=== PATIENT | female | born 1935 | race Caucasian/White ===

== ENCOUNTER → 2017-03-03 | Outpatient (CLI) | payer OTHER ==
[~2017-03-03] MED LIST: ACET-1311 PO; BUPR-79 PO; CEPH500C PO; IBUP-103 PO; INSU70IN2 SC; METF1TAB53 PO
[2017-03-03 13:02] VITALS: BP 119/75; PULSE 83; TEMP 36.5; O2SAT 93
--- NOTE | 2017-03-03 14:06 | Radiation Oncology Follow-Up ---
Radiation Oncology Follow-Up Date of Visit Mar 03, 2017. 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 Davis is a 81-year-old female was last screening mammogram was in 2009. She self detected a left breast mass in late 2015. Patient underwent diagnostic bilateral mammograms. In the left breast an irregular mass with spiculated margins was present measuring 1.8 x 1.8 x 1.8 cm located at the 10 o' clock position anteriorly. Targeted ultrasound demonstrated a solid mass at the site of the mammographic abnormality at the 10 o'clock position anteriorly. These findings were highly suggestive of malignancy and a biopsy was recommended. The right breast was unremarkable. On 09/21/2016 the patient underwent an ultrasound-guided core needle biopsy of the left breast at the 10 to 11 o'clock position 3 cm from the nipple. 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 Estrogen receptors were strongly positive. Progesterone receptors were negative. HER-2/nida" protein expression was equivocal and was confirmed negative by FISH analysis. Accession #: [id number]. Patient was seen by Dr. Sherri Winters for discussion of the surgical treatment options. Dr. Winters discussed breast conserving therapy. Clinically she palpated a near 3 cm mass at the 12 o'clock position proximal 6 cm from the nipple. No preoperative MRIs were required and patient agreed to proceed with the surgical procedure. This was performed on 10/20/2016 and consisted of a left partial mastectomy and sentinel node biopsy. 2 sentinel nodes were identified and both revealed benign fat replaced lymph node with no malignancy appreciated. A left axillary palpable node was also excised and was benign. The partial mastectomy specimen confirmed residual mucinous carcinoma Lex grade 2. The lesion measured at least 2.5 cm in size. The margins were uninvolved by invasive carcinoma with the closest margin at 1.2 cm being the deeper posterior margin. There was evidence of lymphovascular invasion. 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 The margins of the DCIS were also negative with the closest margin E1.1 centimeters of the anterior margin. The final AJCC pathologic staging was therefore pT2 pN0 (sn-), ER positive, [place] negative and HER-2/nida negative. Accession #: [id number]. The patient was subsequently seen by Dr. Balaji Ruiz for evaluation of the role of systemic therapy. It is likely that no chemotherapy will will be recommended and that the patient will be considered as a candidate for adjuvant antiestrogen therapy to start following the completion of her radiation. We were asked to see her in referral today to discuss the role of adjuvant radiation. It is for this reason the patient is being seen. She underwent a CT simulation was found to be candidate for hypo-fractionation. This was completed on 01/27/2017. She received 5130 cGy. Interim History She's been doing well over the past month. She has had some dryness of the skin and dark discoloration. This is steadily improving. She has noted no masses or tenderness and no change of the axilla. She's had no swelling of her arm. She has a follow-up appointment with Dr. Ruiz this afternoon. She is currently not scheduled for mammography. She could not remember where she had her mammograms performed. Our records were reviewed and these are performed at [facility]. Allergies Coded Allergies: No Known Allergies (Unverified , 12/01/16) Home Medications Scheduled Bupropion (Wellbutrin Sr), 150 MG PO QD Ibuprofen Tab (Advil), 200-600 MG PO Q4H Insulin Isophan/Regular (Novolin 70/30), 20 UNITS SC BID Metformin Hcl (Glucophage Ext Rel), 1 TAB PO DAILY Scheduled PRN Acetaminophen (Tylenol), 650 MG PO Q4H PRN for Pain or Fever Review of Systems Gastrointestinal: Symptoms: WNL, Diarrhea GI Comments: Chronic Diarrhea (comes and goes) Oral: Symptoms: No Problems Respiratory: Symptoms: WNL Urinary: Symptoms: WNL Skin: Symptoms: No Problems Breast: Right Upper Arm Measurement: 32.5 Right Mid Arm Measurement: 24.0 Right Wrist Measurement: 17.5 Left Upper Arm Measurement: 31.5 Left Mid Arm Measurement: 23.5 Left Wrist Measurement: 17.5 Arm Dominence: Left Additional Notes: She completed a distress management report and answered "no" to all questions. Physical Exam Vital Signs Date Time Temp Pulse Resp B/P (MAP) Pulse Ox O2 Delivery O2 Flow Rate FiO2 03/03/17 13:02 36.5 83 16 119/75 93 Fatigue: None General Appearance: no apparent distress Eyes: normal inspection, EOMI ENT: normal ENT inspection, hearing grossly normal Neck: no adenopathy, thyroid normal Respiratory/Chest: lungs clear, no respiratory distress, no accessory muscle use Breast: Breast examination reveals well-healed incisions of the left breast. There is resolving hyperpigmentation. There is resolving dry desquamation. There are no masses or tenderness and no axillary adenopathy. Using the [place] score cosmesis she currently has a poor outcome due to the desquamation. The right breast showed no masses or tenderness and no axillary adenopathy. Cardiovascular: regular rate, rhythm, no gallop, no murmur Extremities: no pedal edema Neurologic/Psychiatric: no motor/sensory deficits, alert, normal mood/affect Skin: warm/dry Laboratory Studies Test 12/31/16 09:40 White Blood Count 6.68 K/uL (4.8-10.8) Red Blood Count 4.53 M/uL (4.2-5.4) Hemoglobin 12.3 g/dL (12.0-16.0) Hematocrit 39.6 % (37-47) Mean Corpuscular Volume 87.4 fL (80-100) Mean Corpuscular Hemoglobin 27.2 pg (25-34) Mean Corpuscular Hemoglobin Concent 31.1 g/dl (32-36) Platelet Count 228 K/uL (130-400) Mean Platelet Volume 9.7 fL (7.4-10.4) Neutrophils (%) (Auto) 62.3 % Lymphocytes (%) (Auto) 28.6 % Monocytes (%) (Auto) 5.7 % Eosinophils (%) (Auto) 2.8 % Basophils (%) (Auto) 0.3 % Neutrophils # (Auto) 4.16 K/uL (1.4-6.5) Lymphocytes # (Auto) 1.91 K/uL (1.2-3.4) Monocytes # (Auto) 0.38 K/uL (0.11-0.59) Eosinophils # (Auto) 0.19 K/uL (0-0.5) Basophils # (Auto) 0.02 K/uL (0-0.2) RDW Standard Deviation 47.6 fL (36.4-46.3) RDW Coefficient of Variation 14.8 % (11.5-14.5) Immature Granulocyte % (Auto) 0.3 % Immature Granulocyte # (Auto) 0.02 K/uL (0.00-0.02) Assessment & Plan Plan: Continue regular follow-up with Dr. Winters, Dr. Ruiz, and her primary care physician. I gave her Aquaphor for the dry skin. Mammography was scheduled for the left breast in 2 months. This will be at [facility]. She'll be seeing Dr. Ruiz later this afternoon and Dr. Winters on April 21. Today we completed a cancer survivorship care plan. A copy of the document was given to the patient. We asked her to return to our office in 6 months. She may call if she has any questions or concerns in the interim. Total Time In Follow-Up I spent 20 minutes speaking to the patient a performing examination. I spent 20 minutes reviewing information, preparing the survivorship document, and completing this note. Copy To Kilo Adams M.D.; Sherri Winters MD; Balaji Ruiz MD Problem Qualifiers (1) Breast cancer: Breast location: lower inner quadrant of breast Estrogen receptor status: positive Patient sex: female Laterality: left Qualified Codes: C50.312 - Malignant neoplasm of lower-inner quadrant of left female breast; Z17.0 - Estrogen receptor positive status [ER+]
== END | disposition home or self-care (01) ==
LOC: C.ONC 12:37
PROVIDERS: ATTEND Physician Assistant Medical
DX: Z08 Encounter for follow-up examination after completed treatment for malignant neoplasm (principal); Z92.3 Personal history of irradiation; Z85.3 Personal history of malignant neoplasm of breast

== ENCOUNTER → 2017-09-14 | Outpatient (CLI) | payer OTHER ==
[~2017-09-14] MED LIST changes: -CEPH500C PO
[2017-09-14 13:19] VITALS: BP 97/60; PULSE 84; TEMP 36.4; O2SAT 95
--- NOTE | 2017-09-14 17:09 | Radiation Oncology Follow-Up ---
Radiation Oncology Follow-Up Date of Visit Sep 14, 2017. 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 Davis had her last screening mammogram was in 2009. She self detected a left breast mass in late 2015. Patient underwent diagnostic bilateral mammograms. In the left breast an irregular mass with spiculated margins was present measuring 1.8 x 1.8 x 1.8 cm located at the 10 o'clock position anteriorly. Targeted ultrasound demonstrated a solid mass at the site of the mammographic abnormality at the 10 o'clock position anteriorly. These findings were highly suggestive of malignancy and a biopsy was recommended. The right breast was unremarkable. On 09/21/2016 the patient underwent an ultrasound- guided core needle biopsy of the left breast at the 10 to 11 o'clock position 3 cm from the nipple. 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 Estrogen receptors were strongly positive. Progesterone receptors were negative. HER-2/nida" protein expression was equivocal and was confirmed negative by FISH analysis. Accession #: [id number]. Patient was seen by Dr. Sherri Winters for discussion of the surgical treatment options. Dr. Winters discussed breast conserving therapy. Clinically she palpated a near 3 cm mass at the 12 o'clock position proximal 6 cm from the nipple. No preoperative MRIs were required and patient agreed to proceed with the surgical procedure. This was performed on 10/20/2016 and consisted of a left partial mastectomy and sentinel node biopsy. 2 sentinel nodes were identified and both revealed benign fat replaced lymph node with no malignancy appreciated. A left axillary palpable node was also excised and was benign. The partial mastectomy specimen confirmed residual mucinous carcinoma [place] grade 2. The lesion measured at least 2.5 cm in size. The margins were uninvolved by invasive carcinoma with the closest margin at 1.2 cm being the deeper posterior margin. There was evidence of lymphovascular invasion. 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 The margins of the DCIS were also negative with the closest margin E1.1 centimeters of the anterior margin. The final AJCC pathologic staging was therefore pT2 pN0 (sn-), [place] positive, [place] negative and HER-2/nida negative. Accession #: [id number]. The patient was subsequently seen by Dr. Balaji Ruiz for evaluation of the role of systemic therapy. It is likely that no chemotherapy will will be recommended and that the patient will be considered as a candidate for adjuvant antiestrogen therapy to start following the completion of her radiation. We were asked to see her in referral today to discuss the role of adjuvant radiation. It is for this reason the patient is being seen. She underwent a CT simulation was found to be candidate for hypo-fractionation. This was completed on 01/27/2017. She received 5130 cGy. Interim History She's been doing well over the past 6 months. She denies any changes to her breast. She's noted no masses or tenderness and no change in the axilla. She' s had no swelling of her arm. She is up-to-date on mammography. She had a mammogram 05/03/2017. This was unilateral of the left breast. Findings are probably benign. A short interval follow-up was recommended for 6 months. Allergies Coded Allergies: No Known Allergies (Unverified , 12/01/16) Home Medications Scheduled Bupropion (Wellbutrin Sr), 150 MG PO QD Ibuprofen Tab (Advil), 200-600 MG PO Q4H Insulin Isophan/Regular (Novolin 70/30), 20 UNITS SC BID Metformin Hcl (Glucophage Ext Rel), 1 TAB PO DAILY Scheduled PRN Acetaminophen (Tylenol), 650 MG PO Q4H PRN for Pain or Fever Review of Systems Gastrointestinal: Symptoms: Vomiting, Diarrhea GI Comments: occ vomiting, frequent diarrhea does not take any medication Oral: Symptoms: No Problems Respiratory: Symptoms: WNL Urinary: Symptoms: Incontinence Comments: wears depends Skin: Symptoms: No Problems Other Skin Symptoms: pt has diabetic foot uler right foot followed by home health Breast: Right Upper Arm Measurement: 34.3 Right Mid Arm Measurement: 24.5 Right Wrist Measurement: 17.2 Left Upper Arm Measurement: 32.8 Left Mid Arm Measurement: 24.0 Left Wrist Measurement: 16.6 Arm Dominence: Left Staff Cosmetic Evalaluation: Good Physical Exam Vital Signs Date Time Temp Pulse Resp B/P (MAP) Pulse Ox O2 Delivery O2 Flow Rate FiO2 09/14/17 13:19 36.4 84 20 97/60 95 Fatigue: None General Appearance: no apparent distress, + obese Eyes: normal inspection, EOMI ENT: normal ENT inspection, hearing grossly normal Neck: no adenopathy, thyroid normal Respiratory/Chest: lungs clear, no respiratory distress, no accessory muscle use Breast: Patient has large pendulous breasts. There are well-healed incisions of the left breast. There are no masses or tenderness and no axillary adenopathy. Using the [place] score cosmesis she has a good outcome. She has no skin retractions or nipple changes. The right breast showed no masses or tenderness and no axillary adenopathy. Cardiovascular: regular rate, rhythm, no gallop, no murmur Neurologic/Psychiatric: alert, normal mood/affect Skin: warm/dry Pain Management Patient Reports Pain: Yes Side: Right Pain Location: foot Patient Preferred Pain Scale: 0 - 10 Initial Pain Intensity: 2.0 Pain Management Plan Pain is managed by her primary care physician. Laboratory Laboratory Results: not applicable Pathology Pathology Results: not applicable Imaging Imaging Studies: were reviewed Imaging Comments See interim history. Assessment & Plan Plan: The patient was unsure as to whether she had her next mammogram scheduled. This information was reviewed in the electronic medical record at [facility]. She did have a mammogram scheduled for November 01. This information was given to her. She'll continue with the regular scheduled mammography. Continue follow-up with her breast surgeon and primary care physician. She'll continue follow-up with medical oncology. We asked her to return to our office in 1 year. She may call if he she has any questions or concerns in the interim. Total Time In Follow-Up I spent 20 minutes speaking to the patient perform examination. I spent 15 minutes reviewing information and completing this note. Copy To Kilo Adams M.D.; Sherri Winters MD; Balaji Ruiz MD Problem Qualifiers (1) Breast cancer: Breast location: lower inner quadrant of breast Estrogen receptor status: positive Patient sex: female Laterality: left Qualified Codes: C50.312 - Malignant neoplasm of lower-inner quadrant of left female breast; Z17.0 - Estrogen receptor positive status [ER+]
== END | disposition home or self-care (01) ==
LOC: C.ONC 13:08
PROVIDERS: ATTEND Physician Assistant Medical
DX: Z08 Encounter for follow-up examination after completed treatment for malignant neoplasm (principal); Z92.3 Personal history of irradiation; Z85.3 Personal history of malignant neoplasm of breast

== ENCOUNTER → 2017-12-09 | Outpatient (CLI) | payer OTHER ==
[~2017-12-09] MED LIST changes: +AMOX500C3 PO; +CLC/300 PO
[2017-12-09 08:47] LABS: BASO % 0.8 %; BASO ABS # 0.05 K/uL (0-0.2); EOS % 2.4 %; EOS ABS # 0.15 K/uL (0-0.5); HEMATOCRIT 39.9 % (37-47); HEMOGLOBIN 12.5 g/dL (12.0-16.0); LYMPH ABS # 1.48 K/uL (1.2-3.4); MEAN CELL VOLUME 87.5 fL (80-100); MEAN CORPUSCULAR HEMOGLOBIN 27.4 pg (25-34); MEAN CORPUSCULAR HGB CONC 31.3 g/dl (32-36); MEAN PLATELET VOLUME 10.2 fL (7.4-10.4); MONO % 9.4 %; MONO ABS # 0.58 K/uL (0.11-0.59); NEUT % 63.4 %; NEUT ABS # 3.91 K/uL (1.4-6.5); PLATELET COUNT 238 K/uL (130-400); RED CELL DISTRIBUTION WIDTH CV 14.8 % (11.5-14.5); WHITE BLOOD COUNT 6.17 K/uL (4.8-10.8)
[2017-12-09 09:18] LABS: ALT/SGPT 16 U/L (12-78); BLOOD UREA NITROGEN 18 mg/dl (7-18); CALCIUM 8.8 mg/dl (8.5-10.1); CARBON DIOXIDE 29 mmol/L (21-32); CREATININE 1.01 mg/dl (0.60-1.20); GLUCOSE 85 mg/dl (70-99); SODIUM 140 mmol/L (136-145)
[2017-12-09 09:21] LABS: ALKALINE PHOSPHATASE 43 U/L (45-117); AST/SGOT 13 U/L (15-37); TOTAL PROTEIN 6.4 gm/dl (6.4-8.2)
[2017-12-09 09:22] LABS: HEMOGLOBIN A1C 7.4 % (4.5-5.6)
== END ==
LOC: C.LABUPNIT 07:38
PROVIDERS: ATTEND Nurse Practitioner Family
DX: E08.622 Diabetes mellitus due to underlying condition with other skin ulcer (principal)

== ENCOUNTER 2017-12-20 19:31 | Inpatient (IN) | payer OTHER ==
[~2017-12-20] VITALS: Ht 152.4 cm; Wt 82.7 kg
[~2017-12-20 19:31] MED LIST changes: -CLC/300 PO
[2017-12-20] MEDS ORDERED: ALBUT/IPRATROP 3MG/0.5MG NEB 3 ML VIAL INH STA (19:43)
--- NOTE | 2017-12-20 20:05 | DIAGNOSTIC IMAGING REPORT ---
CHEST ONE VIEW PORTABLE CLINICAL HISTORY: Weakness COMPARISON STUDY: 01/16/2015 FINDINGS: There is been interval removal of the right internal jugular central venous catheter. The heart is at the upper limits of normal in size. There is no failure. There are slightly prominent markings the left lung base, atelectatic versus inflammatory.[ IMPRESSION: AP portable study. Prominent left basilar markings, atelectatic versus inflammatory Electronically signed by: Ion Oro M.D. 12/20/2017 8:04 PM Dictated Date/Time: 12/20/2017 8:03 PM
[2017-12-20 20:24] LABS: BASO % 0.4 %; BASO ABS # 0.03 K/uL (0-0.2); EOS % 2.5 %; EOS ABS # 0.18 K/uL (0-0.5); HEMATOCRIT 41.4 % (37-47); HEMOGLOBIN 12.9 g/dL (12.0-16.0); IG# 0.03 K/uL (0.00-0.02); LYMPH % 19.1 %; LYMPH ABS # 1.39 K/uL (1.2-3.4); MEAN CELL VOLUME 86.3 fL (80-100); MEAN CORPUSCULAR HEMOGLOBIN 26.9 pg (25-34); MEAN CORPUSCULAR HGB CONC 31.2 g/dl (32-36); MEAN PLATELET VOLUME 10.1 fL (7.4-10.4); MONO % 4.9 %; MONO ABS # 0.36 K/uL (0.11-0.59); NEUT % 72.7 %; NEUT ABS # 5.29 K/uL (1.4-6.5); PLATELET COUNT 215 K/uL (130-400); RED CELL DISTRIBUTION WIDTH CV 14.8 % (11.5-14.5); RED CELL DISTRIBUTION WIDTH SD 46.7 fL (36.4-46.3); WHITE BLOOD COUNT 7.28 K/uL (4.8-10.8)
--- NOTE | 2017-12-20 20:24 | EMERGENCY ROOM VISIT NOTE ---
History Report prepared by Annia: Lul Perkins Under the Supervision of: Dr. Marvin Velazquez M.D. First contact with patient: 19:33 Stated Complaint: HYPOGLYCEMIA, HYPOXIA History of Present Illness The patient is an 82 year old female who presents to the Emergency Room with complaints of resolved hypoglycemia beginning this morning. Nursing staff states the patient's blood sugar was 38 at [facility]. They report the patient was given glucagon, and her blood sugar bhavani to 86 upon EMS arrival. Nursing staff notes she had an O2Sat of 76 on room air, and her blood sugar bhavani to the 120s in the room. They state the patient had a prehospital chest x-ray for coarse breath sounds. The patient has a history of diabetes mellitus, chronic kidney disease, osteopetrosis, and breast cancer. Pt denies LOC, headache, fevers, chills, diaphoresis, visual changes, neck pain, chest pain, breathing difficulties, nausea, vomiting, abdominal pain, back pain, urinary symptoms, numbness, weakness, lymphadenopathy, rash, or other complaints. HPI is limited secondary to mental acuity and mental status. Source of History: nursing staff History Limited By: other (mental acuity and mental status) Onset: prior to arrival Symptom Intensity: blood sugar of 36 Quality: other (hypoglycemia) Timing: resolved Review of Systems ROS limited secondary to mental acuity and mental status. Past Medical & Surgical Medical Problems: (1) Bowel obstruction (2) Breast cancer (3) Diabetes (4) Hypoglycemia Surgical Problems: (1) History of appendectomy (2) History of hysterectomy (3) Hx of cholecystectomy Family History Cancer Diabetes mellitus Heart disease Hypertension Social History Smoking Status: Never Smoker Drug Use: none Marital Status: Housing Status: lives with significant other Occupation Status: retired Current/Historical Medications Scheduled Amoxicillin (Amoxil), 500 MG PO TID Aspirin (Aspirin), 81 MG PO DAILY Bupropion (Wellbutrin Sr), 150 MG PO DAILY Calcium Carbonate-Cholecalcife (Calcium 600 with Vitamin 600-400 mg-Unit), 1 TAB PO DAILY Ibandronate Sodium (Boniva), 150 MG PO MONTHLY Insulin Isophan/Regular (Novolin 70/30), 15 UNITS SC BID Loratadine (Claritin), 10 MG PO DAILY Metformin Hcl Er (Glucophage Er), 500 MG PO BID Mupirocin (Bactroban 2% Oint), 1 APPLN TOP QS Probiotic Product (Probiotic), 250 MG PO BID Scheduled PRN Acetaminophen (Tylenol), 650 MG PO Q6H PRN for Pain or Fever Acetaminophen (Tylenol), 1 SUPP RE Q6H PRN for Pain or Fever Bisacodyl (Dulcolax), 1 SUPP NH UD PRN for Constipation Dextrose (Diabetic Use) (Insta-Glucose), 1 APPLN BU UD PRN for Hypoglycemia Protocol Glucagon (Glucagon Emergency Kit), 1 MG IM UD PRN for Hypoglycemia Protocol Magnesium Hydroxide (Milk of Magnesia 400 mg/5Ml), 1,200 MG PO UD PRN for Constipation Nystatin (Topical) (Nystatin), 1 APPLN TOP Q8 PRN for Right Breast Excoriation Ondansetron Hcl (Zofran), 4 MG PO Q6H PRN for Nausea or Vomiting Sodium Phosphate/Biphosphate (Fleet Enema), 1 EA NH UD PRN for Constipation Soft Lens Products (Saline Solution), 2 SPRAYS PETE Q6H PRN for Nasal Congestion Allergies Coded Allergies: Citalopram (Verified Allergy, Unknown, Unknown, 12/20/17) Listed on NOV Statins (Verified Allergy, Unknown, Unknown, 12/20/17) Listed on NOV Physical Exam Vital Signs Date Time Temp Pulse Resp B/P (MAP) Pulse Ox O2 Delivery O2 Flow Rate FiO2 12/20/17 23:50 91 18 93 Room Air 12/20/17 23:31 106/78 12/20/17 23:20 82 18 99 12/20/17 23:15 81 22 99 Nasal Cannula 2.0 12/20/17 23:01 125/55 12/20/17 22:45 80 19 95 12/20/17 22:39 36.7 12/20/17 22:35 106/52 12/20/17 22:31 91 24 12/20/17 22:20 192/108 12/20/17 22:19 184/129 12/20/17 21:31 82 25 116/76 98 12/20/17 21:01 81 18 140/72 96 Non-Rebreather 15.0 12/20/17 21:01 81 20 96 12/20/17 21:00 140/72 12/20/17 20:37 81 12/20/17 20:31 80 19 94 12/20/17 20:19 90 Non-Rebreather 15.0 12/20/17 20:19 91 Non-Rebreather 15.0 12/20/17 19:58 85 Room Air 12/20/17 19:58 34.5 79 22 132/57 85 Room Air 12/20/17 19:45 132/57 Physical Exam GENERAL: Awake, alert, very tired-appearing, in no distress. Arousable to voice. HENT: Normocephalic, atraumatic. Oropharynx unremarkable. EYES: Normal conjunctiva. Sclera non-icteric. NECK: Supple. No nuchal rigidity. FROM. No masses. RESPIRATORY: Rhonchi present - right greater than left. No wheezes. No rales. Mildly increased respiratory effort. CARDIAC: Normal rate. Normal rhythm. No murmurs. No rubs. Extremities warm and well perfused. Pulses equal. No JVD. GI: Soft, non-distended. No tenderness to palpation. No rebound or guarding. No masses. RECTAL: Deferred. MUSCULOSKELETAL: Atraumatic. Chest examination reveals no tenderness. The back is symmetrical on inspection without obvious abnormality. There is no CVA tenderness to palpation. No joint edema. LOWER EXTREMITIES: Calves are equal size bilaterally and non-tender. 1+ bilateral edema. No discoloration. WoundVac on the right lower extremity. NEURO: Normal sensorium. No sensory or motor deficits noted. SKIN: No rash or jaundice noted. Medical Decision & Procedures ER Provider Diagnostic Interpretation: Radiology results as stated below per my review and radiologist interpretation: CHEST ONE VIEW PORTABLE CLINICAL HISTORY: Weakness COMPARISON STUDY: 01/16/2015 FINDINGS: There is been interval removal of the right internal jugular central venous catheter. The heart is at the upper limits of normal in size. There is no failure. There are slightly prominent markings the left lung base, atelectatic versus inflammatory.[ IMPRESSION: AP portable study. Prominent left basilar markings, atelectatic versus inflammatory Electronically signed by: Ion Oro M.D. 12/20/2017 8:04 PM Dictated Date/Time: 12/20/2017 8:[address] ANGIOGRAM OF THE CHEST CLINICAL HISTORY: Hypoxia ABNORMAL CHEST X-RAY COMPARISON STUDY: Chest x-ray dated 12/20/2017 TECHNIQUE: Following the IV administration of 92 mL of Optiray-320, CT angiogram of the thorax was performed from the thoracic inlet to the lung bases utilizing the pulmonary embolus protocol. Images are reviewed in the axial, sagittal, and coronal planes. IV contrast was administered without complication. MIP imaging was performed. A dose lowering technique was utilized adhering to the principles of ALARA. CT DOSE: FINDINGS: r there is 17 mm right lobe thyroid nodule. No pathologically enlarged axillary mediastinal or hilar lymph nodes were visualized. There was no evidence of thoracic aortic dilatation. There were no pulmonary artery filling defects to indicate acute pulmonary embolism. No pleural effusions are visualized. There is moderately bilateral lower lobe atelectasis/consolidation, right more extensive than left.. There is mild esophageal wall thickening. IMPRESSION: 1. No evidence of acute pulmonary embolism 2. Bilateral lower lobe atelectasis/consolidation 3. Esophageal wall thickening 4. 17 mm right lobe thyroid nodule Electronically signed by: Ion Oro M.D. 12/20/2017 10:07 PM Dictated Date/Time: 12/20/2017 10:[address] HEAD WITHOUT CONTRAST (CT) CLINICAL HISTORY: Acute change in mental status. Hypoxia. COMPARISON STUDY: No previous studies for comparison. TECHNIQUE: Axial CT of the brain is performed from the vertex to the skull base. IV contrast was not administered for this examination. A dose lowering technique was utilized adhering to the principles of ALARA. CT DOSE: 1143.75 mGy.cm FINDINGS: No intra or extra-axial mass lesions are visualized. There is no CT evidence of acute cortical infarction. There is no evidence of midline shift. There is no acute hemorrhage. No calvarial fractures are visualized. There are minor white matter hypodensities likely on a small vessel basis. There is no evidence of pathologic ventricular dilatation. There is an old left cerebellar infarct in the distribution of the left PICA. There is right maxilla sinus fluid and mucosal thickening. There is a left maxillary sinus retention cyst. There is sphenoid sinus mucosal thickening. Multiple ethmoid air cells are opacified. There is mild mucosal disease within the right frontal sinus. IMPRESSION: 1. No acute intracranial findings 2. Old left cerebellar infarct 3. Pansinus disease Electronically signed by: Ion Oro M.D. 12/20/2017 10:03 PM Dictated Date/Time: 12/20/2017 10:01 PM Laboratory Results 12/20/17 19:15 Red Blood Count 4.80, Mean Corpuscular Volume 86.3, Mean Corpuscular Hemoglobin 26.9, Mean Corpuscular Hemoglobin Concent 31.2, Mean Platelet Volume 10.1, Neutrophils (%) (Auto) 72.7, Lymphocytes (%) (Auto) 19.1, Monocytes (%) (Auto) 4.9, Eosinophils (%) (Auto) 2.5, Basophils (%) (Auto) 0.4, Neutrophils # (Auto) 5.29, Lymphocytes # (Auto) 1.39, Monocytes # (Auto) 0.36, Eosinophils # (Auto) 0.18, Basophils # (Auto) 0.03 12/20/17 19:15 Test 12/20/17 19:15 12/20/17 20:09 12/20/17 20:13 12/20/17 22:30 White Blood Count 7.28 K/uL (4.8-10.8) Red Blood Count 4.80 M/uL (4.2-5.4) Hemoglobin 12.9 g/dL (12.0-16.0) Hematocrit 41.4 % (37-47) Mean Corpuscular Volume 86.3 fL (80-100) Mean Corpuscular Hemoglobin 26.9 pg (25-34) Mean Corpuscular Hemoglobin Concent 31.2 g/dl (32-36) Platelet Count 215 K/uL (130-400) Mean Platelet Volume 10.1 fL (7.4-10.4) Neutrophils (%) (Auto) 72.7 % Lymphocytes (%) (Auto) 19.1 % Monocytes (%) (Auto) 4.9 % Eosinophils (%) (Auto) 2.5 % Basophils (%) (Auto) 0.4 % Neutrophils # (Auto) 5.29 K/uL (1.4-6.5) Lymphocytes # (Auto) 1.39 K/uL (1.2-3.4) Monocytes # (Auto) 0.36 K/uL (0.11-0.59) Eosinophils # (Auto) 0.18 K/uL (0-0.5) Basophils # (Auto) 0.03 K/uL (0-0.2) RDW Standard Deviation 46.7 fL (36.4-46.3) RDW Coefficient of Variation 14.8 % (11.5-14.5) Immature Granulocyte % (Auto) 0.4 % Immature Granulocyte # (Auto) 0.03 K/uL (0.00-0.02) Prothrombin Time 10.3 SECONDS (9.0-12.0) Prothromb Time International Ratio 1.0 (0.9-1.1) Activated Partial Thromboplast Time 26.3 SECONDS (21.0-31.0) Partial Thromboplastin Ratio 1.0 Anion Gap 5.0 mmol/L (3-11) Est Creatinine Clear Calc Drug Dose 46.7 ml/min Estimated GFR () 58.1 Estimated GFR (Non- 50.1 BUN/Creatinine Ratio 20.3 (10-20) Calcium Level 9.3 mg/dl (8.5-10.1) Magnesium Level 1.8 mg/dl (1.8-2.4) Total Bilirubin 0.2 mg/dl (0.2-1) Direct Bilirubin < 0.1 mg/dl (0-0.2) Aspartate Amino Transf (AST/SGOT) 16 U/L (15-37) Alanine Aminotransferase (ALT/SGPT) 17 U/L (12-78) Alkaline Phosphatase 47 U/L (45-117) Total Creatine Kinase 43 U/L (26-192) Creatine Kinase MB 0.8 ng/ml (0.5-3.6) Creatine Kinase MB Ratio 1.9 (0-3.0) Troponin I < 0.015 ng/ml (0-0.045) Total Protein 6.9 gm/dl (6.4-8.2) Albumin 2.9 gm/dl (3.4-5.0) Lipase 812 U/L (73-393) Thyroid Stimulating Hormone (TSH) 1.050 uIu/ml (0.300-4.500) Bedside Lactic Acid Venous 1.86 mmol/L (0.90-1.70) Arterial Blood pH 7.45 (7.35-7.45) Arterial Blood Partial Pressure CO2 41 mmHg (35-46) Arterial Blood Partial Pressure O2 126 mm/Hg (80-95) Arterial Blood HCO3 28 mmol/L (19-24) Arterial Blood Oxygen Saturation 98.8 % (90-95) Arterial Blood Base Excess 3.6 mEq/L (-9-1.8) Arterial Blood Gas Delivery 7 LITERS Connor Test POS (POS) Urine Color YELLOW Urine Appearance CLEAR (CLEAR) Urine pH 7.0 (4.5-7.5) Urine Specific [place] 1.022 (1.000-1.030) Urine Protein NEG (NEG) Urine Glucose (UA) NEG (NEG) Urine Ketones NEG (NEG) Urine Occult Blood NEG (NEG) Urine Nitrite NEG (NEG) Urine Bilirubin NEG (NEG) Urine Urobilinogen NEG (NEG) Urine Leukocyte Esterase NEG (NEG) Laboratory results reviewed by me Medications Administered Medications (Trade) Dose Ordered Sig/Janice Route Start Time Stop Time Status Last Admin Dose Admin Albuterol/ Ipratropium (Duoneb) 3 ml NOW STAT INH 12/20/17 19:43 12/20/17 19:45 DC 12/20/17 22:48 3 ML Levofloxacin (Levaquin / D5W) 750 mg NOW STAT IV 12/20/17 22:11 12/20/17 22:13 DC 12/20/17 22:47 750 MG Piperacillin Sod/ Tazobactam Sod (Zosyn Iv) 4.5 gm NOW STAT IV 12/20/17 22:11 12/20/17 22:13 DC 12/20/17 22:11 4.5 GM ECG Per My Interpretation Indication: other (hypoxia) Rate (beats per minute): 80 Rhythm: normal sinus Findings: no acute ischemic change, no ectopy ED Course 1936: The patient was evaluated in room B10. A complete history and physical exam was performed. 1942: Ordered Duoneb 3ml INH 2103: I reevaluated the patient. She is stable. I updated her daughter. She is getting a cath urine and recheck blood sugar. 2133: I reevaluated the patient. She is more awake and going to CT. 2210: Ordered Zosyn IV 4.5gm IV, Levofloxacin 750mg IV 2236: Upon reexamination, the patient was resting comfortably. I discussed the test results and treatment plan with her. The patient will be evaluated for further management. 2242: I discussed the [facility] will evaluated the patient for further management and care. Medical Decision Prior records/ancillary studies reviewed and summarized above. Nursing notes reviewed and agree them. Additional history obtained from the patient's daughter. The patient's history was concerning for altered mental status. Differential diagnosis: Etiologies such as infection, hypoglycemia, electrolyte abnormalities, cardiac sources, intracerebral event, toxicologic, neurologic, as well as others were entertained. Physical examination: As above. The patient was tired but easily arousable to voice. She was answering basic questions and really complained of no significant symptoms. ER treatment provided: IV Lock DuoNeb BiPAP ordered however the patient's ABG revealed no significant hypercarbia and her O2 saturations are adequate. Warming blanket On reassessment the patient felt better. IV Zosyn IV Levaquin Diagnostics interpretation by me: ECG: No acute ischemia The labs revealed minimal elevation of her lactate at 1.86. CBC was unremarkable. Chemistry panel was unremarkable. Urinalysis negative. Imaging studies: Chest x-ray and CT scans as above The patient had hypoxia, hypoglycemia and hypothermia. She has infiltrates on her CT. She was treated with Rocephin and Zithromax per her treating physician at the alf. Because of this she will be covered for healthcare acquired pneumonia. Consultation: A consultation was placed with the hospitalist. The case was discussed and diagnostics were reviewed. The patient was evaluated in the ER for further treatment. Medication Reconcilliation Current Medication List: was personally reviewed by me Blood Pressure Screening Patient's blood pressure: Normal blood pressure Blood pressure disposition: Did not require urgent referral Consults Time Called: 2214 Consulting Physician: Judi Barnard Hospitalist Returned Call: [phone] I discussed the patient's case with Judi Barnard Hospitalist. He will evaluated the patient for further management and care. Impression Primary Impression: HCAP (healthcare-associated pneumonia) Scribe Attestation The scribe's documentation has been prepared under my direction and personally reviewed by me in its entirety. I confirm that the note above accurately reflects all work, treatment, procedures, and medical decision making performed by me. Departure Information Dispostion Being Evaluated By Hospitalist Referrals John Torres (PCP)
[2017-12-20 20:37] LABS: ALBUMIN 2.9 gm/dl (3.4-5.0); ALT/SGPT 17 U/L (12-78); AST/SGOT 16 U/L (15-37); BLOOD UREA NITROGEN 21 mg/dl (7-18); CALCIUM 9.3 mg/dl (8.5-10.1); CARBON DIOXIDE 29 mmol/L (21-32); CREATININE 1.05 mg/dl (0.60-1.20); GLUCOSE 94 mg/dl (70-99); POTASSIUM 3.6 mmol/L (3.5-5.1); SODIUM 139 mmol/L (136-145)
[2017-12-20 20:38] LABS: PTT PATIENT 26.3 SECONDS (21.0-31.0)
[2017-12-20 20:50] LABS: ALKALINE PHOSPHATASE 47 U/L (45-117); CKMB 0.8 ng/ml (0.5-3.6); LIPASE 812 U/L (73-393); TOTAL PROTEIN 6.9 gm/dl (6.4-8.2)
[2017-12-20] MEDS ORDERED: ASPI1TAB83 PO (21:01)
[2017-12-20] MEDS ORDERED: CALC-585 PO (21:06)
[2017-12-20] MEDS ORDERED: CLR10 PO (21:06)
[2017-12-20] MEDS ORDERED: IBAN150T PO (21:06)
[2017-12-20] MEDS ORDERED: BUPR-79 PO (21:08)
[2017-12-20] MEDS ORDERED: METF500T5 PO (21:08)
[2017-12-20] MEDS ORDERED: INSU70IN2 SC (21:10)
[2017-12-20] MEDS ORDERED: AMOX500T3 PO (21:12)
[2017-12-20] MEDS ORDERED: MISCCAP80 PO (21:12)
[2017-12-20] MEDS ORDERED: OPTIRAY 320 IV PRN (21:15)
[2017-12-20] MEDS ORDERED: ACET-1311 PO (21:19)
[2017-12-20] MEDS ORDERED: ACET650S10 RE (21:19)
[2017-12-20] MEDS ORDERED: SODIENE PR (21:25)
[2017-12-20] MEDS ORDERED: GLGKIT IM (21:25)
[2017-12-20] MEDS ORDERED: BISA10SU3 PR (21:25)
[2017-12-20] MEDS ORDERED: DEXT40GE BU (21:27)
[2017-12-20] MEDS ORDERED: MAGNSUS73 PO (21:30)
[2017-12-20] MEDS ORDERED: SOFT1SOL45 NAE (21:35)
[2017-12-20] MEDS ORDERED: ONDA4TAB46 PO (21:35)
[2017-12-20] MEDS ORDERED: BCTROWC TOP (21:36)
[2017-12-20] MEDS ORDERED: NYST100033 TOP (21:38)
--- NOTE | 2017-12-20 22:04 | DIAGNOSTIC IMAGING REPORT ---
CT HEAD WITHOUT CONTRAST (CT) CLINICAL HISTORY: Acute change in mental status. Hypoxia. COMPARISON STUDY: No previous studies for comparison. TECHNIQUE: Axial CT of the brain is performed from the vertex to the skull base. IV contrast was not administered for this examination. A dose lowering technique was utilized adhering to the principles of ALARA. CT DOSE: 1143.75 mGy.cm FINDINGS: No intra or extra-axial mass lesions are visualized. There is no CT evidence of acute cortical infarction. There is no evidence of midline shift. There is no acute hemorrhage. No calvarial fractures are visualized. There are minor white matter hypodensities likely on a small vessel basis. There is no evidence of pathologic ventricular dilatation. There is an old left cerebellar infarct in the distribution of the left PICA. There is right maxilla sinus fluid and mucosal thickening. There is a left maxillary sinus retention cyst. There is sphenoid sinus mucosal thickening. Multiple ethmoid air cells are opacified. There is mild mucosal disease within the right frontal sinus. IMPRESSION: 1. No acute intracranial findings 2. Old left cerebellar infarct 3. Pansinus disease Electronically signed by: Ion Oro M.D. 12/20/2017 10:03 PM Dictated Date/Time: 12/20/2017 10:01 PM
--- NOTE | 2017-12-20 22:08 | DIAGNOSTIC IMAGING REPORT ---
CT ANGIOGRAM OF THE CHEST CLINICAL HISTORY: Hypoxia ABNORMAL CHEST X-RAY COMPARISON STUDY: Chest x-ray dated 12/20/2017 TECHNIQUE: Following the IV administration of 92 mL of Optiray-320, CT angiogram of the thorax was performed from the thoracic inlet to the lung bases utilizing the pulmonary embolus protocol. Images are reviewed in the axial, sagittal, and coronal planes. IV contrast was administered without complication. MIP imaging was performed. A dose lowering technique was utilized adhering to the principles of ALARA. CT DOSE: FINDINGS: r there is 17 mm right lobe thyroid nodule. No pathologically enlarged axillary mediastinal or hilar lymph nodes were visualized. There was no evidence of thoracic aortic dilatation. There were no pulmonary artery filling defects to indicate acute pulmonary embolism. No pleural effusions are visualized. There is moderately bilateral lower lobe atelectasis/consolidation, right more extensive than left.. There is mild esophageal wall thickening. IMPRESSION: 1. No evidence of acute pulmonary embolism 2. Bilateral lower lobe atelectasis/consolidation 3. Esophageal wall thickening 4. 17 mm right lobe thyroid nodule Electronically signed by: Ion Oro M.D. 12/20/2017 10:07 PM Dictated Date/Time: 12/20/2017 10:03 PM
[2017-12-20] MEDS ORDERED: LEVAQUIN 750MG / 150ML D5W IV STA (22:11)
[2017-12-20] MEDS ORDERED: PIPERACILLIN/TAZOBACTAM 4.5 GM/100ML D5W IV STA (22:11)
[2017-12-20] MEDS ORDERED: SODIUM CHLORIDE 0.9% 1000ML 1,000 ML IV SCH (23:49)
[2017-12-21] VITALS (7 sets, daily range): BP systolic 92–138; BP diastolic 58–78; PULSE 80–92; TEMP 36.4–37.5; O2SAT 92–96; Ht 152.4 cm; Wt 82.7 kg
[2017-12-21] MEDS ORDERED: ONDANSETRON INJ 2 MG/ML 2 ML VIAL IV PRN
[2017-12-21] MEDS ORDERED: BISACODYL 10 MG SUPP PR PRN
[2017-12-21] MEDS ORDERED: PIPERACILL/TAZOBAC CONSULT ACTIVE PRN
[2017-12-21] MEDS ORDERED: NYSTATIN POWDER 15GM BTL EXT PRN
[2017-12-21] MEDS ORDERED: NITROGLYCERIN 0.4 MG SL PER TAB CHARGE SL PRN
[2017-12-21] MEDS ORDERED: ALUMINUM/MAGNESIUM/SIMETH (MAALOX MAX) 30 ML UDC PO PRN
[2017-12-21] MEDS ORDERED: ACETAMINOPHEN 325 MG TAB PO PRN
[2017-12-21] MEDS ORDERED: POLYETHYLENE (MIRALAX) 17 GM PACK PO PRN
[2017-12-21] MEDS ORDERED: GLUCOSE 40% GEL 15 GM TUBE PO PRN (00:45)
[2017-12-21] MEDS ORDERED: DEXTROSE 50% 50 ML SYR IV PRN (00:45)
[2017-12-21] MEDS ORDERED: GLUCOSE 10 TABS/TUBE PO PRN (00:45)
[2017-12-21] MEDS ORDERED: GLUCAGON FOR INJ 1 MG VIAL SQ PRN (00:45)
[2017-12-21] MEDS: D5W AND NSS 1,000 ML IV SCH ×2 (01:15→13:40)
[2017-12-21] MEDS ORDERED: LEVOFLOXACIN CONSULT ACTIVE PRN (01:30)
[2017-12-21 03:28] LABS: BASO % 0.2 %; BASO ABS # 0.02 K/uL (0-0.2); EOS ABS # 0.09 K/uL (0-0.5); HEMATOCRIT 36.9 % (37-47); HEMOGLOBIN 11.7 g/dL (12.0-16.0); IG# 0.02 K/uL (0.00-0.02); LYMPH ABS # 1.14 K/uL (1.2-3.4); MEAN CORPUSCULAR HEMOGLOBIN 27.3 pg (25-34); MEAN CORPUSCULAR HGB CONC 31.7 g/dl (32-36); MEAN PLATELET VOLUME 9.5 fL (7.4-10.4); MONO % 7.6 %; MONO ABS # 0.66 K/uL (0.11-0.59); NEUT ABS # 6.81 K/uL (1.4-6.5); PLATELET COUNT 188 K/uL (130-400); RED CELL DISTRIBUTION WIDTH CV 14.9 % (11.5-14.5); RED CELL DISTRIBUTION WIDTH SD 46.9 fL (36.4-46.3); WHITE BLOOD COUNT 8.74 K/uL (4.8-10.8)
[2017-12-21] MEDS: PIPERACILL/TAZOBAC IV 3.375 GM in DEXTROSE 5% 100ML 100 ML IV SCH ×3 (03:53→21:31)
[2017-12-21 03:58] LABS: CALCIUM 8.8 mg/dl (8.5-10.1); CREATININE 1.03 mg/dl (0.60-1.20); POTASSIUM 4.4 mmol/L (3.5-5.1)
--- NOTE | 2017-12-21 03:59 | HISTORY & PHYSICAL EXAMINATION ---
DATE OF ADMISSION: 12/21/2017 CHIEF COMPLAINT: Hyperglycemia and shortness of breath. HISTORY OF PRESENT ILLNESS: This 82-year-old female with past medical history significant for diabetes, chronic kidney disease stage III, diabetic foot ulcer chronic, urinary incontinence, anxiety, depression comes from [facility] because of episode of hypoglycemia and also somewhat hypoxic. Daughter is in the room . The patient says she is in [facility], since last 1 week because the patient's is there for 1 month and her is the one who is taking care of the patient, so she went to live there for the last 1 week. The patient also follows with wound clinic for chronic right foot wound ulcer. Currently, she has a wound VAC and she is on antibiotics for that, but at the [facility] she also developed some cough and she was also treated with Z-Bill and then she had couple of episodes of hypoglycemia and today her blood sugars 38, was given glucagon which raised the blood sugar and the EMS came and when the EMS checked, her oxygen sats 76% on room air and they brought here and chest shows some coarse breath sounds initially and she was given fluids and antibiotics. Currently, she is resting comfortably, hemodynamically stable. Had some headache earlier, but says headache is better now. Denies any blurred vision, no earache. Has some runny nose, has some dry cough, some sore throat, no difficulty swallowing. Denies any chest pain. Denies any shortness of breath. Currently, no abdominal pain, no nausea, no vomiting. Normal bowel and bladder movements. Appetite is okay. No blood in the stools. No blood in the urine. Usually, walks okay except she could not bear any weight on the right leg. ALLERGIES: CITALOPRAM AND STATIN. PAST MEDICAL HISTORY: As mentioned above. PAST SURGICAL HISTORY: Axillary lymph node biopsy, incision and drainage of the left knee, exploration of the abdomen, throat polyp removed, laser surgery of the eyes, partial mastectomy, appendectomy, enterectomy small bowel resection, cataract surgeries, repair of the incisional hernia, total abdominal hysterectomy with removal of tubes, cholecystectomy. MEDICATIONS: Aspirin 81 mg p.o. daily; Wellbutrin-XL 150 mg p.o. daily; calcium carbonate 1 tablet daily; Boniva 150 mg 1 tablet every month; insulin Novolin 70/30, 20 units b.i.d.; metformin 850 mg p.o. b.i.d.; metformin 500 mg long acting b.i.d.; metformin 1000 mg p.o. long acting daily; MetroGel topical skin. FAMILY HISTORY: Significant for mother had cancer. Father had heart disorder and cerebellar aneurysm. Maternal grandmother and paternal grandmother had diabetes. SOCIAL HISTORY: . No smoking history. No alcohol history. No drug history. REVIEW OF SYMPTOMS: As per HPI. Rest of review of symptoms negative. PHYSICAL EXAMINATION: GENERAL: The patient is old and frail, not in distress. VITAL SIGNS: Temperature 36.7, pulse 81, respiratory rate 22, blood pressure 125/55, oxygen at 99% on 2 liters. HEENT: No pallor, no icterus. Pupils equal, round and reactive to light. NECK: No JVD, no neck masses, no carotid bruit. CARDIOVASCULAR: S1, S2, regular rate and rhythm, no murmur, no gallop. RESPIRATORY SYSTEM: Normal AP diameter. Clear to auscultation bilaterally. No accessory muscle use. No wheezing, no crackles. ABDOMEN: Soft, bowel sounds present. Nontender. No distention. CENTRAL NERVOUS SYSTEM: Cranial nerves grossly nonfocal. EXTREMITIES: Mild tremor present. No erythema seen. LABORATORIES: WBC 7.2, hemoglobin 12.9, hematocrit 41.4, platelets 215. Sodium 139, potassium 3.6, chloride 105, bicarbonate 113, BUN 21, creatinine 1.05, glucose 126, random glucose 94. Point of care lactic acid 1.8, calcium 9.3, magnesium 1.8, total bilirubin 0.2, direct bilirubin less than 0.1, AST 16, ALT 17, alkaline phosphatase 47, total creatinine kinase 43, CK-MB 0.8 and troponin I less than 0.015. Lipase 812. TSH is 1.05. PT 10.3, INR 1, aPTT 26.3. Urinalysis negative. CT of the head, no acute findings seen, old left cerebellar infarct, felder sinus disease. CT of the chest: No PE, bilateral lower lobe atelectasis and consolidation seen,oesophageal wall thickness and 30 mm right lower thyroid nodule. Chest x-ray: Prominent left base atelectasis versus inflammatory. EKG: Normal sinus rhythm at the rate of 80, no significant change from previous EKG. ASSESSMENT AND PLAN: This is an 82-year-old female presents with episode of hypoglycemia and hypoxia. 1. Hypoxia. CAT scan shows bibasilar consolidation, most likely with pneumonia, was having cough for some time. We will check for flu. We will empirically start her on Levaquin and Zosyn. Follow the cultures. Nebs p.r.n., oxygen supplementation for now and monitor in tele floor. The patient is currently saturating okay on 2 liters.POC lactic acid 1.6 mostly from hypoxia. repeat labs normalized 2. Hypoglycemia having few episodes she says since she went to [facility]. As per daughter, the patient is on metformin and insulin but does not take much insulin at home .She was getting sliding scale at [facility] but sugars were low. We will hold the metformin. We will follow the blood sugars. Start on D5 normal saline. We will follow the blood sugars. We will give her sliding scale with goal range of 120-180, closely monitor. We will follow HbA1c levels.Consult pharmacy for glycemic management 3. Depression. Continue Wellbutrin. 4. History of breast cancer status post partial mastectomy and radiation treatment. 5. History of chronic diabetic ulcer on the right foot. Follow with the wound care. Currently on the wound VAC. Was getting antibiotics, but currently we will hold home antibiotics, as placed on IV antibiotics. We will consult wound care. 6. Thyroid nodule. on ct chest 17mm thyroid nodule. Out patient followup. 7 Deep venous prophylaxis, SCDs and TEDs. 8. Disposition. Admit to tele floor. Expect to discharge back to [facility] when patient is stable. Of note, the [facility] physician called ER and said they can do IV abx in the [facility]. Social service for d/c planning Code status level 1. MTDD
[2017-12-21] MEDS: HEPARIN SOD 5000 UNIT/0.5 ML CARP SQ SCH ×3 (05:35→21:31)
[2017-12-21] MEDS: INSULIN ASPART 100 UNITS/ML 3 ML PEN SC SCH ×3 (07:00→16:15)
[2017-12-21] MEDS: BACITRACIN OINT 15 GM TUBE TOP SCH ×4 (08:00→23:29)
[2017-12-21] MEDS: ASPIRIN 81 MG ECTAB PO SCH (08:54)
[2017-12-21] MEDS: CALCIUM 600MG + VIT D 400 IU TAB PO SCH (08:54)
[2017-12-21] MEDS: BuPROPion SR 150 MG TABCR PO SCH (08:54)
[2017-12-21 17:29] LABS: INFLUENZA A PCR Neg for Influ A (NEG); INFLUENZA B PCR Neg for Influ B (NEG)
--- NOTE | 2017-12-21 17:32 | Progress Note ---
Progress Note Date of Service Dec 21, 2017. Progress Note Patient admitted today see the H&P for detailed information Briefly this is a 10-year-old female with chronic right plantar foot diabetic infection on wound VAC, type 2 diabetes on insulin and oral hypoglycemics metformin, CKD stage III, hypertension At present at [facility] for skilled rehab-sent from snf to ER, as patient was found to be hypoxic, increased confusion, low blood sugar In ER CT chest shows bibasilar infiltrate versus atelectasis Blood sugar was in the low 50s Elevated lactic acid Patient empirically started with IV Zosyn and Levaquin for healthcare associated pneumonia IV fluids with dextrose for hypoglycemic episode Wound care team consulted for chronic right foot diabetic infection and wound VAC management On exam at bedside, Patient appears to be at her baseline mental status able to answer questions appropriately, does not recall the events that led her to admission in hospital Healthcare associated pneumonia/hypoxia Symptom has improved no fever chills , patient denies of any cough shortness of breath Hypoxia has resolved Continue with IV Zosyn, DC levofloxacin for now for increased risk associated with associated Will transition to oral antibiotics in the next 24-48 hours depending patient's clinical improvement Hypoglycemia/history of type 2 diabetes Per daughter in snf patient has repeated low blood sugar event, was not happy that patient was still receiving large dose of insulin by the nursing staff Metformin We will DC insulin sliding care Hemoglobin A1c 7 Pharmacy consulted for glycemic management Discussed at length with daughter-patient may need minimum or no insulin requirement on return to nursing will prove to prevent hypoglycemia History of breast cancer: Status post partial mastectomy and radiation treatment No active issue. . Thyroid nodule. on ct chest 17mm thyroid nodule. will order thyroid ultrasound TSH level within normal limits CODE STATUS: Full code Disposition: Spoke with daughter Maryana Walden wants to speak with case assistant for discharge planning Wants to look into other institution for continued rehab for the patient, as she thinks patient was not getting adequate care at the current snf sem manager consulted PT OT evaluation requested
[2017-12-22] MEDS: PIPERACILL/TAZOBAC IV 3.375 GM in DEXTROSE 5% 100ML 100 ML IV SCH ×2 (04:36→11:25)
[2017-12-22] MEDS: HEPARIN SOD 5000 UNIT/0.5 ML CARP SQ SCH ×3 (04:36→21:42)
[2017-12-22 07:14] VITALS: BP 106/77; PULSE 77; TEMP 36.1; O2SAT 97
[2017-12-22] MEDS: BACITRACIN OINT 15 GM TUBE TOP SCH ×3 (07:59→23:14)
[2017-12-22 08:00] VITALS: O2SAT 97
[2017-12-22] MEDS: ASPIRIN 81 MG ECTAB PO SCH (08:03)
[2017-12-22] MEDS: BuPROPion SR 150 MG TABCR PO SCH (08:04)
[2017-12-22] MEDS: CALCIUM 600MG + VIT D 400 IU TAB PO SCH (08:04)
[2017-12-22 09:15] LABS: CALCIUM 9.2 mg/dl (8.5-10.1); CREATININE 0.99 mg/dl (0.60-1.20); POTASSIUM 4.2 mmol/L (3.5-5.1)
[2017-12-22 15:16] VITALS: BP 130/75; PULSE 85; TEMP 36.4; O2SAT 96
[2017-12-22 16:00] VITALS: O2SAT 97
--- NOTE | 2017-12-22 17:16 | Progress Note ---
Internal Med Progress Note Date of Service: Dec 22, 2017. Provider Documentation: SUBJECTIVE: Patient denies of any cough no discomfort no fever or chills Eager to be discharged back to [facility] OBJECTIVE: Vital Signs-as noted below Exam: General-elderly female, no apparent distress Eyes- sclera nonicteric, pupils react to light ENT-moist oral mucosa Neck-no JVD, no carotid bruit Lungs- diminished, occasional rales at bases Heart-regular S1-S2 Abdomen-soft nontender Extremities-has a wound VAC on the right foot Neuro-forgetfulness/baseline dementia?, No focal neurological deficit Lab data as noted below. ASSESSMENT & PLAN: HEALTHCARE ASSOCIATED PNEUMONIA/HYPOXIA Symptom has improved significantly , patient denies of any cough shortness of breath Hypoxia has resolved will DC IV antibiotics Transition to oral antibiotic doxycycline 100 mg twice daily for 5 more days HYPOGLYCEMIA/HISTORY OF TYPE 2 DIABETES Possible secondary to infection? Insulin and oral hypoglycemic discontinued Blood sugar stable, no episode of hypoglycemia Hemoglobin A1c 7 Pharmacy consulted for glycemic management Discussed at length with daughter-patient may need minimum or no insulin requirement on return to nursing will prove to prevent hypoglycemia HISTORY OF BREAST CANCER: Status post partial mastectomy and radiation treatment No active issue. THYROID NODULE. on ct chest 17mm thyroid nodule. l ordered thyroid ultrasound TSH level within normal limits CODE STATUS: Full code DISPOSITION: PT OT evaluation requested Appreciate input from spring encaser Plan to discharge patient to [facility] tomorrow to complete rehab Vital Signs: Date Time Temp Pulse Resp B/P (MAP) Pulse Ox O2 Delivery O2 Flow Rate FiO2 12/23/17 07:37 36.9 71 20 146/74 (98) 90 12/22/17 23:59 Room Air 12/22/17 23:30 36.2 82 18 140/84 (102) 90 Room Air 12/22/17 16:00 97 Nasal Cannula 2.0 12/22/17 15:16 36.4 85 22 130/75 (93) 96 Room Air Lab Results: Results Past 24 Hours Test 12/22/17 08:24 12/22/17 11:17 12/22/17 17:03 12/22/17 21:39 Range/Units Sodium Level 142 136-145 mmol/L Potassium Level 4.2 3.5-5.1 mmol/L Chloride Level 108 98-107 mmol/L Carbon Dioxide Level 28 21-32 mmol/L Anion Gap 6.0 3-11 mmol/L Blood Urea Nitrogen 15 7-18 mg/dl Creatinine 0.99 0.60-1.20 mg/dl Est Creatinine Clear Calc Drug Dose 43.2 ml/min Estimated GFR () 62.4 Estimated GFR (Non- 53.8 BUN/Creatinine Ratio 15.5 10-20 Random Glucose 102 70-99 mg/dl Calcium Level 9.2 8.5-10.1 mg/dl Magnesium Level 1.7 1.8-2.4 mg/dl Bedside Glucose 127 97 132 70-90 mg/dl Test 12/23/17 07:51 Range/Units Bedside Glucose 90 70-90 mg/dl
[2017-12-22] MEDS ORDERED: DXY100 PO (17:26)
--- NOTE | 2017-12-22 17:29 | Discharge Instructions ---
Discharge Instructions Date of Service Dec 22, 2017. Admission Reason for Admission: Hypoglycemia, Pna Discharge Discharge Diagnosis / Problem: PNEUMONIA /CHRONIC RT DIABETIC FOOT INFECTION Discharge Goals Goal(s): Increase independence, Improve disease control, Diagnostic testing, Therapeutic intervention Activity Recommendations Activity Level: Assistance Required Therapies: Physical Therapy, Occupational Therapy . Additional Information Patient informed of condition: Yes Advance Directives: No DNR: No Level of Care: Skilled Communicable Disease: No Prognosis: Stable Tavarez Catheter: No Instructions / Follow-Up Instructions / Follow-Up WOUND CLINIC FOLLOWUP ON 12/26/17 @ 9:30 AM FOLLOW UP WITH [facility]YSICIAN IN [facility] FOR BLOOD SUGAR MANAGEMENT INSULIN IS DISCONTINUED DIABETIC MEDS RECOMMENDATIONS: * Continue metformin ER 500 mg PO BID * monitor renal function every 3 months - discontinue metformin for CrCl < 30 ml/min * Consider resuming insulin therapy as an outpatient if patient has a fasting BSG greater than 130 mg/dL x 2. * Recommend D/C Novolin 70/30 * START WITH Once long acting basal insulin (lantus or levemir) to limit hypoglycemia. * Start with 8 units SQ once daily. * blood sugar monitoring :-fasting / before each meals /before bedtime * keep log of the blood sugars * notify physician for high > 200 /low < 100 blood sugars Current Hospital Diet Patient's current hospital diet: AHA Diet (Heart Healthy), Diabetes Type 2 Diet Discharge Diet Recommended Diet: AHA Diet (Heart Healthy), Diabetes Type 2 Diet Pending Studies Studies pending at discharge: no Laboratory Results Hemoglobin A1c Test 12/21/17 03:18 Range/Units Estimated Average Glucose 154 mg/dl Hemoglobin A1c 7.0 H 4.5-5.6 % Medical Emergencies . Who to Call and When: Medical Emergencies: If at any time you feel your situation is an emergency, please call 911 immediately. . Non-Emergent Contact Non-Emergency issues call your: Primary Care Provider . . "Provider Documentation" section prepared by Lyudmila Anderson. . Core Measure Problem Core Measures: None
[2017-12-22] MEDS ORDERED: MAGNESIUM SULFATE 1GM / D5W 100 ML IV ONE (17:45)
[2017-12-22] MEDS ORDERED: PHARMACY GLYCEMIC MGMT CONSULT PRN (17:48)
[2017-12-22] MEDS: DOXYCYCLINE HYCLATE 100 MG CAP PO SCH (21:42)
[2017-12-22] MEDS ORDERED: LEVOFLOXACIN / D5W 750 MG in PREMIXED IN D5W 150 ML IV SCH (22:00)
[2017-12-22 23:30] VITALS: BP 140/84; PULSE 82; TEMP 36.2; O2SAT 90
[2017-12-23 07:37] VITALS: BP 146/74; PULSE 71; TEMP 36.9; O2SAT 90
[2017-12-23] MEDS: CALCIUM 600MG + VIT D 400 IU TAB PO SCH (08:09)
[2017-12-23] MEDS: BuPROPion SR 150 MG TABCR PO SCH (08:09)
[2017-12-23] MEDS: DOXYCYCLINE HYCLATE 100 MG CAP PO SCH (08:09)
[2017-12-23] MEDS: ASPIRIN 81 MG ECTAB PO SCH (08:09)
[2017-12-23] MEDS: BACITRACIN OINT 15 GM TUBE TOP SCH ×2 (08:13→16:05)
--- NOTE | 2017-12-23 09:14 | Pharmacy Progress Note ---
Glycemic Control Intl Consult Date of Service Dec 23, 2017. Scope Glycemic Pharmacist consulted by Dr Anderson on 12/22/17 for glycemic control and to write orders per [facility] inpatient glycemic control protocol Objective Weight (Kilograms): 82.700 Accuchecks BSG (last 24hrs): Test 12/22/17 11:17 12/22/17 17:03 12/22/17 21:39 12/23/17 07:51 Bedside Glucose 127 mg/dl (70-90) 97 mg/dl (70-90) 132 mg/dl (70-90) 90 mg/dl (70-90) HbA1c Test 12/21/17 03:18 Hemoglobin A1c 7.0 % (4.5-5.6) H Recent Pertinent Medications Outpatient Anti-diabetic Regimen: * Metformin ER 500 mg PO BID + Novolin 70/30 15 units SQ BID The patient is currently receiving: * no insulin or oral anti-diabetic agents Assessment & Plan ASSESSMENT: * 82 yr old T2DM female admitted with hypoglycemia and pneumonia. * Pt is well controlled on Novolin 70/30 and metformin as an outpatient with A1c of 7%. However, she does report some episodes of hypoglycemia. * Fany has required no insulin since the time of admission. PLAN FOR INPATIENT GLYCEMIC CONTROL: * Resume metformin ER 500 mg BID * Basal insulin : none * Bolus Insulin: none DISCHARGE RECOMMENDATIONS: * Continue metformin ER 500 mg PO BID * monitor renal function every 3 months - discontinue metformin for CrCl < 30 ml/min * Consider resuming insulin therapy as an outpatient if patient has a fasting BSG greater than 130 mg/dL x 2. Recommend changing Novolin 70/30 to a once daily dose of long acting basal insulin (lantus or levemir) to limit hypoglycemia. Start with 8 units SQ once daily. Thank you.
--- NOTE | 2017-12-23 10:39 | Clinical Documentation Query ---
CLINICAL DOCUMENTATION QUERY 82 year old female who presents to the Emergency Room with complaints hypoglycemia and hypoxia. She was found 76% on RA and still 85% on 15L NRM. In your clinical opinion is this patient being managed for: ( ) Acute respiratory failure with hypoxia treated with O2, Nebs, and IV antibiotics. ( ) Not Agree ( ) Other explanation of clinical findings (Please Explain) ( ) Unable to determine (Please Define) ( ) Need to Discuss The medical record reflects the following clinical findings, treatment, and risk factors. Clinical Indicators: As above. tachypnea 25. Treatment: O2 via NRM, nebs, IV antibiotics Risk Factors: Age, HCAP, Please clarify and document your clinical opinion in the progress notes and discharge summary. Terms such as "probable", "suspected", "likely", "questionable", "possible", or "still to be ruled out" are acceptable. IF IN AGREEMENT, YOU MUST DOCUMENT ABOVE DIAGNOSTIC STATEMENT IN DAILY PROGRESS NOTES AND DISCHARGE SUMMARY. This document is not part of the patient's record. Thank You, Pascual Dow, RN [phone]
--- NOTE | 2017-12-23 11:52 | Discharge Summary ---
Discharge Summary Date of Service Dec 23, 2017. Discharge Summary Admission Date: Dec 20, 2017 at 23:55 Discharge Date: Dec 23, 2017 Discharge Disposition: senior care facility ([facility] ) Principal Diagnosis: PNEUMONIA /CHRONIC RT DIABETIC FOOT INFECTION Medication Reconciliation New Medications: Doxycycline Hyclate (Doxycycline Hyclate) 100 Mg Cap 1 CAP PO BID for 5 Days, #10 CAP Continued Medications: Acetaminophen (Tylenol) 325 Mg Tab 650 MG PO Q6H PRN for Pain or Fever, TAB NEEDED FOR PAIN AND/OR ELEVATED TEMPERATURE GREATER THAN 101 F. DO NOT EXCEED 3 GM APAP/24 HOURS Acetaminophen (Tylenol) 650 Mg Supp 1 SUPP RE Q6H PRN for Pain or Fever NEEDED FOR PAIN AND/OR ELEVATED TEMPERATURE GREATER THAN 101 F. DO NOT EXCEED 3 GM APAP/24 HOURS Amoxicillin (Amoxil) 500 Mg Tab 500 MG PO TID for 10 Days, #30 TAB PRESCRIBED 12/16/2017, TAKE DIRECTED UNTIL GONE Aspirin (Aspirin) 81 Mg Tab 81 MG PO DAILY, TAB Bisacodyl (Dulcolax) 10 Mg Sup 1 SUPP OH UD PRN for Constipation, SUP NEEDED FOR NO BOWEL MOVEMENT ON DAY 4 Bupropion (Wellbutrin Sr) 150 Mg Ertab 150 MG PO DAILY, TAB Calcium Carbonate-Cholecalcife (Calcium 600 with Vitamin 600-400 mg-Unit) 1 Tab Tab 1 TAB PO DAILY Dextrose (Diabetic Use) (Insta-Glucose) 77.4 % Gel 1 APPLN BU UD PRN for Hypoglycemia Protocol NEEDED FOR BSG LESS THAN 60 AND/OR SYMPTOMATIC HYPOGLYCEMIA (MUST BE RESPONSIVE AND ABLE TO SWALLOW SAFELY). Glucagon (Glucagon Emergency Kit) 1 Mg Kit 1 MG IM UD PRN for Hypoglycemia Protocol NEEDED FOR BSG LESS THAN 60 AND/OR SYMPTOMATIC/UNRESPONSIVE HYPOGLYCEMIA. MAY REPEAT AFTER 15 MINUTES IF NEEDED. Ibandronate Sodium (Boniva) 150 Mg Tab 150 MG PO MONTHLY, TAB TAKE THIS MEDICATION ONCE EVERY MONTH WITH 8 OUNCES OF WATER 60 MINUTES BEFORE FIRST MEAL OF THE DAY AND REMAIN UPRIGHT FOR 60 MINUTES AFTER TAKING. Loratadine (Claritin) 10 Mg Tab 10 MG PO DAILY for 7 Days, #7 TAB START 12/16/2017, TAKE ONCE A DAY FOR INCREASED SECRETIONS FOR ONE WEEK Magnesium Hydroxide (Milk of Magnesia 400 mg/5Ml) 1 Aubrie Aubrie 1200 MG PO UD PRN for Constipation NEEDED FOR NO BOWEL MOVMENT FOR 72 HOURS Metformin Hcl Er (Glucophage Er) 500 Mg Tab 500 MG PO BID, TAB Mupirocin (Bactroban 2% Oint) 66 Appln/22 Gm Oint 1 APPLN TOP QS, TUBE APPLY TO SCALP EVERY SHIFT Nystatin (Topical) (Nystatin) 100,000 Unit/Gm Pow 1 APPLN TOP Q8 PRN for Right Breast Excoriation Ondansetron Hcl (Zofran) 4 Mg Tab 4 MG PO Q6H PRN for Nausea or Vomiting, TAB Probiotic Product (Probiotic) 1 Cap Cap 250 MG PO BID Sodium Phosphate/Biphosphate (Fleet Enema) Peyton 1 EA OH UD PRN for Constipation, BTL IF AFTER 4 HOURS DULCOLAX SUPPOSITORY WAS INEFFECTIVE GIVE FLEET ENEMA Soft Lens Products (Saline Solution) 1 Juanita Juanita 2 SPRAYS PETE Q6H PRN for Nasal Congestion Discontinued Medications: Insulin Isophan/Regular (Novolin 70/30) Susp 15 UNITS SC BID, BTL Admission Information HPI (per Admitting provider): DATE OF ADMISSION: 12/21/2017 CHIEF COMPLAINT: Hyperglycemia and shortness of breath. HISTORY OF PRESENT ILLNESS: This 82-year-old female with past medical history significant for diabetes, chronic kidney disease stage III, diabetic foot ulcer chronic, urinary incontinence, anxiety, depression comes from [facility] because of episode of hypoglycemia and also somewhat hypoxic. Daughter is in the room . The patient says she is in [facility], since last 1 week because the patient's is there for 1 month and her is the one who is taking care of the patient, so she went to live there for the last 1 week. The patient also follows with wound clinic for chronic right foot wound ulcer. Currently, she has a wound VAC and she is on antibiotics for that, but at the snf she also developed some cough and she was also treated with Z-Bill and then she had couple of episodes of hypoglycemia and today her blood sugars 38, was given glucagon which raised the blood sugar and the EMS came and when the EMS checked, her oxygen sats 76% on room air and they brought here and chest shows some coarse breath sounds initially and she was given fluids and antibiotics. Currently, she is resting comfortably, hemodynamically stable. Had some headache earlier, but says headache is better now. Denies any blurred vision, no earache. Has some runny nose, has some dry cough, some sore throat, no difficulty swallowing. Denies any chest pain. Denies any shortness of breath. Currently, no abdominal pain, no nausea, no vomiting. Normal bowel and bladder movements. Appetite is okay. No blood in the stools. No blood in the urine. Usually, walks okay except she could not bear any weight on the right leg. ALLERGIES: CITALOPRAM AND STATIN. PAST MEDICAL HISTORY: As mentioned above. PAST SURGICAL HISTORY: Axillary lymph node biopsy, incision and drainage of the left knee, exploration of the abdomen, throat polyp removed, laser surgery of the eyes, partial mastectomy, appendectomy, enterectomy small bowel resection, cataract surgeries, repair of the incisional hernia, total abdominal hysterectomy with removal of tubes, cholecystectomy. MEDICATIONS: Aspirin 81 mg p.o. daily; Wellbutrin-XL 150 mg p.o. daily; calcium carbonate 1 tablet daily; Boniva 150 mg 1 tablet every month; insulin Novolin 70/30, 20 units b.i.d.; metformin 850 mg p.o. b.i.d.; metformin 500 mg long acting b.i.d.; metformin 1000 mg p.o. long acting daily; MetroGel topical skin. FAMILY HISTORY: Significant for mother had cancer. Father had heart disorder and cerebellar aneurysm. Maternal grandmother and paternal grandmother had diabetes. SOCIAL HISTORY: . No smoking history. No alcohol history. No drug history. Physical Exam (per Admitting): REVIEW OF SYMPTOMS: As per HPI. Rest of review of symptoms negative. PHYSICAL EXAMINATION: GENERAL: The patient is old and frail, not in distress. VITAL SIGNS: Temperature 36.7, pulse 81, respiratory rate 22, blood pressure 125/55, oxygen at 99% on 2 liters. HEENT: No pallor, no icterus. Pupils equal, round and reactive to light. NECK: No JVD, no neck masses, no carotid bruit. CARDIOVASCULAR: S1, S2, regular rate and rhythm, no murmur, no gallop. RESPIRATORY SYSTEM: Normal AP diameter. Clear to auscultation bilaterally. No accessory muscle use. No wheezing, no crackles. ABDOMEN: Soft, bowel sounds present. Nontender. No distention. CENTRAL NERVOUS SYSTEM: Cranial nerves grossly nonfocal. EXTREMITIES: Mild tremor present. No erythema seen. Hospital Course HEALTHCARE ASSOCIATED PNEUMONIA/HYPOXIA Symptom has improved significantly , patient denies of any cough shortness of breath Hypoxia has resolved will DC IV antibiotics Transition to oral antibiotic doxycycline 100 mg twice daily for 5 more days ACUTE RESPIRATORY FAILURE WITH HYPOXIA: due to above presented with spo2 88% in RA required supplemental 02 symptom resolved at present in room air with 95% sp02 HYPOGLYCEMIA/HISTORY OF TYPE 2 DIABETES Possible secondary to infection? Insulin and oral hypoglycemic discontinued Blood sugar stable, no episode of hypoglycemia Hemoglobin A1c 7 Pharmacy consulted for glycemic management Discussed at length with daughter-patient may need minimum or no insulin requirement on return to nursing will prove to prevent hypoglycemia pt will be discharged on Oral Metformin only D/c Insulin to prevent hypoglycemia asked to have BSG check in [facility] and have physician follow up for elevated or low BSG HISTORY OF BREAST CANCER: Status post partial mastectomy and radiation treatment No active issue. THYROID NODULE. on ct chest 17mm thyroid nodule. thyroid ultrasound: IMPRESSION: Multinodular thyroid with low suspicion spongiform nodules. Follow-up could be considered as clinically indicated. No fine-needle aspiration recommended at this time per the [place] [employer] criteria. TSH level within normal limits CODE STATUS: Full code DISPOSITION: PT OT evaluation requested Appreciate input from social work case manager Plan to discharge patient to [facility] today to complete rehab Total time spent on discharge = This includes examination of the patient, discharge planning, medication reconciliation, and communication with other providers. Discharge Instructions Discharge Instructions Date of Service Dec 22, 2017. Admission Reason for Admission: Hypoglycemia, Pna Discharge Discharge Diagnosis / Problem: PNEUMONIA /CHRONIC RT DIABETIC FOOT INFECTION Discharge Goals Goal(s): Increase independence, Improve disease control, Diagnostic testing, Therapeutic intervention Activity Recommendations Activity Level: Assistance Required Therapies: Physical Therapy, Occupational Therapy . Additional Information Patient informed of condition: Yes Advance Directives: No DNR: No Level of Care: Skilled Communicable Disease: No Prognosis: Stable Tavarez Catheter: No Instructions / Follow-Up Instructions / Follow-Up WOUND CLINIC FOLLOWUP ON 12/26/17 @ 9:30 AM FOLLOW UP WITH PHYSICIAN IN [facility] FOR BLOOD SUGAR MANAGEMENT INSULIN IS DISCONTINUED DIABETIC MEDS RECOMMENDATIONS: * Continue metformin ER 500 mg PO BID * monitor renal function every 3 months - discontinue metformin for CrCl < 30 ml/min * Consider resuming insulin therapy as an outpatient if patient has a fasting BSG greater than 130 mg/dL x 2. * Recommend D/C Novolin 70/30 * START WITH Once long acting basal insulin (lantus or levemir) to limit hypoglycemia. * Start with 8 units SQ once daily. * blood sugar monitoring :-fasting / before each meals /before bedtime * keep log of the blood sugars * notify physician for high > 200 /low < 100 blood sugars Current Hospital Diet Patient's current hospital diet: AHA Diet (Heart Healthy), Diabetes Type 2 Diet Discharge Diet Recommended Diet: AHA Diet (Heart Healthy), Diabetes Type 2 Diet Pending Studies Studies pending at discharge: no Laboratory Results Hemoglobin A1c Test 12/21/17 03:18 Range/Units Estimated Average Glucose 154 mg/dl Hemoglobin A1c 7.0 H 4.5-5.6 % Medical Emergencies . Who to Call and When: Medical Emergencies: If at any time you feel your situation is an emergency, please call 911 immediately. . Non-Emergent Contact Non-Emergency issues call your: Primary Care Provider . . "Provider Documentation" section prepared by Lyudmila Anderson. . Core Measure Problem Core Measures: None
[2017-12-23] MEDS: HEPARIN SOD 5000 UNIT/0.5 ML CARP SQ SCH (13:55)
[2017-12-23 15:21] VITALS: BP 122/57; PULSE 80; TEMP 36.6; O2SAT 92
[2017-12-23 15:22] VITALS: BP 122/57; PULSE 80; TEMP 36.6; O2SAT 92
--- NOTE | 2017-12-23 15:32 | DIAGNOSTIC IMAGING REPORT ---
SOFT TISS HEAD/NECK-THYROID CLINICAL HISTORY: 82 years-old Female presenting with thyroid nodule . TECHNIQUE: Real-time grayscale and color Doppler ultrasound imaging of the thyroid and base of the neck was performed. COMPARISON: CTA chest from 12/20/2017. FINDINGS: Image quality is suboptimal likely secondary to patient body habitus. Right lobe: Heterogeneous secondary to the presence of multiple nodules The right lobe of the thyroid measures 5.0 x 2.3 x 2.6 cm. No parenchymal hyperemia. Index nodule(s) enumerated below: 1. Upper pole to interpolar region spongiform nodule measuring 2.0 x 1.8 x 1.6 cm (low suspicion). Left lobe: Normal echogenicity and echotexture. The left lobe of the thyroid measures 4.0 x 1.3 x 1.9 cm. No parenchymal hyperemia. Index nodule(s) enumerated below: 1. Lower pole nodule measuring 1.0 x 1.0 x 0.8 cm, which is suspected to be spongiform though the left lobe is poorly visualized (low suspicion). Isthmus: The isthmus measures 6 mm in thickness. No parenchymal hyperemia. No nodules. IMPRESSION: Multinodular thyroid with low suspicion spongiform nodules. Follow-up could be considered as clinically indicated. No fine-needle aspiration recommended at this time per the [place] thyroid Association criteria. Electronically signed by: Kilo Gandara M.D. 12/23/2017 3:31 PM Dictated Date/Time: 12/23/2017 3:28 PM
[2017-12-23 16:00] VITALS: O2SAT 92
[2017-12-23] MEDS ORDERED: INSULIN ASPART 100 UNITS/ML 3 ML PEN SC SCH (16:30)
[2017-12-23] MEDS ORDERED: METFORMIN HCL 500 MG TABCR PO SCH (17:00)
--- NOTE | 2017-12-27 16:07 | EDITING REQUIRED CODING QUERY ---
CODING QUERY To promote full compliance with coding requirements relating to patient care, provider participation is requested in all cases of manager hardware uncertainty. Please assist us with the question(s) below: Coding Question(s): Patient presents with hypoxia and resolved hypoglycemia. Please clarify for coding purposes if patient had the following: Acute respiratory failure ( ) Acute respiratory failure with hypoxia ( x ) Unknown ( ) Other ( ) Physician's Response(s): Thank you Chata Fleming Principal Diagnosis: "_that condition established after study, to be chiefly responsible for occasioning the admission of the patient to the hospital for care." Co-Existing Principal Diagnosis: "_when two or more diagnoses equally meet the criteria for principal diagnosis as determined by the circumstances of admission, diagnostic work up, and/or therapy provided, and the Alphabetic Index, Tabular List, or another coding guideline does not provide sequencing direction, any one of the diagnoses may be sequenced first." "When the physician has documented what appears to be a current diagnosis in the body of the record, but has not included the diagnosis in the final diagnostic statement, the physician should be asked whether the diagnosis should be added." ([facility] 2 QTR90. p3-4)
== END 2017-12-23 17:15 | DRG 193 ==
LOC: EDBD 19:31 → C.EDB 19:32 → C.2T 23:55 → ENRESERV 12-21 00:12 → C.MS4W 12-21 19:50
PROVIDERS: ADMIT Internal Medicine; ATTEND Hospitalist
DX: J18.9 Pneumonia, unspecified organism (principal); J96.01 Acute respiratory failure with hypoxia; E11.649 Type 2 diabetes mellitus with hypoglycemia without coma; E11.621 Type 2 diabetes mellitus with foot ulcer; N18.3 Chronic kidney disease, stage 3 (moderate); F41.9 Anxiety disorder, unspecified; F32.9 Major depressive disorder, single episode, unspecified; E04.1 Nontoxic single thyroid nodule; Z90.49 Acquired absence of other specified parts of digestive tract; Z79.4 Long term (current) use of insulin; Z88.8 Allergy status to other drugs, medicaments and biological substances; Z85.3 Personal history of malignant neoplasm of breast; Z90.710 Acquired absence of both cervix and uterus; Z79.82 Long term (current) use of aspirin; Z83.3 Family history of diabetes mellitus; Z82.49 Family history of ischemic heart disease and other diseases of the circulatory system; Z80.9 Family history of malignant neoplasm, unspecified

== ENCOUNTER 2020-03-18 20:39 | Inpatient (IN) ==
[2020-03-18] MEDS ORDERED: ACETAMINOPHEN 1,000 MG/100 ML VIAL IV STA (21:18)
[2020-03-18] MEDS ORDERED: SODIUM CHLORIDE 0.9% 500 ML IV ONE (21:18)
[2020-03-18 21:28] LABS: Basophils # (auto) 0.01 K/uL (0-0.2); Basophils % (auto) 0.2 %; Eosinophils # (auto) 0.11 K/uL (0-0.5); Hematocrit (blood only) 39.9 % (37-47); Hemoglobin 12.4 g/dL (12.0-16.0); Immature Granulocytes # (auto) 0.01 K/uL (0.00-0.02); Immature Granulocytes % (auto) 0.2 %; Lymphocytes # (auto) 2.07 K/uL (1.2-3.4); Lymphocytes % (auto) 37.8 %; Mean Corpuscular Hemoglobin 27.1 pg (25-34); Mean Corpuscular Hgb Conc 31.1 g/dL (32-36); Mean Corpuscular Volume 87.3 fL (80-100); Mean Platelet Volume 10.4 fL (7.4-10.4); Monocytes # (auto) 0.43 K/uL (0.11-0.59); Monocytes % (auto) 7.9 %; Neutrophils # (auto) 2.84 K/uL (1.4-6.5); Neutrophils % (auto) 51.9 %; Platelet Count 227 K/uL (130-400); RDW Coefficient of Variation 14.5 % (11.5-14.5); RDW Standard Deviation 46.1 fL (36.4-46.3); Red Blood Count 4.57 M/uL (4.2-5.4); White Blood Count 5.47 K/uL (4.8-10.8)
[2020-03-18 21:37] LABS: Partial Thromboplastin Time 27.2 Seconds (21.0-31.0); Prothrombin Time 10.8 Seconds (9.0-12.0)
[2020-03-18 22:12] LABS: Alanine Aminotransferase 13 U/L (12-78); Albumin Level 2.9 gm/dl (3.4-5.0); Aspartate Aminotransferase 12 U/L (15-37); BUN Creatinine Ratio 20.9 (10-20); Bilirubin Direct < 0.1 mg/dl (0-0.2); Blood Urea Nitrogen 20 mg/dl (7-18); Calcium 8.9 mg/dl (8.5-10.1); Carbon Dioxide 30 mmol/L (21-32); Chloride 109 mmol/L (98-107); Creatinine Clr Calc Pharmacy 46.2 ml/min; Est GFR (African American) 65.5; Est GFR (Non-African American) 56.5; Glucose 144 mg/dl (70-99); Lipase 101 U/L (73-393); Magnesium 1.6 mg/dl (1.8-2.4); Sodium 143 mmol/L (136-145)
[2020-03-18 22:16] LABS: Albumin Globulin Ratio 0.7 (0.9-2); Alkaline Phosphatase 58 U/L (45-117); Bilirubin,Total 0.3 mg/dl (0.2-1); Globulin 3.9 gm/dl (2.5-4.0); Phosphorus 3.3 mg/dl (2.5-4.9); Total Protein 6.8 gm/dl (6.4-8.2); Troponin I < 0.015 ng/ml (0-0.045)
[2020-03-18] MEDS ORDERED: OPTIRAY 320 125ml IV PRN (22:35)
--- NOTE | 2020-03-18 22:56 | Emergency Department Note ---
Impression & Plan Substernal chest pain, Hypomagnesemia, Diabetes ED Provider Note NAME: PHILIP KNIGHT AGE: 84 SEX: F ARRIVES VIA: Ambulance INFORMANT: Patient, ED PROVIDER(S): Armando Peterson MD CHIEF COMPLAINT: Chest pain PLAN: Disposition: Admit MEDICAL DECISION MAKING: The patient is a pleasant 84-year-old woman with a past medical history of remote breast cancer, DM2, chronic foot ulcers followed by wound clinic who presents emergency department with episode of chest pain that occurred several hours prior to arrival that improved after receiving full dose aspirin by EMS. Patient reports feeling radiation from her chest to her back. She denied any shortness of breath, nausea or vomiting. Prior to this she has been feeling healthy and denies any fevers, chills, cough, congestion, urinary symptoms. On arrival she is in no acute distress, afebrile stable vital signs. EKG without overt acute ischemia. Chest x-ray negative for acute process per my preliminary review. WBC, H/H and platelets within normal limits. Chemistry without aci dosis. Magnesium 1.6 with repletion provided. Otherwise, electrolytes and LFTs unremarkable. Troponin negative/undetectable. Lipase within normal limits. CT of the chest was performed and per preliminary STATRAD report was negative for PE, pneumonia or acute aortic pathology. Heart score 6, moderate risk, therefore reasonable admit the patient for further evaluation of her chest pain. Patient and her daughter at the bedside are agreeable with plan. Case was discussed with Dr. Chowdhury, [facility] hospitalist, who will evaluate the patient for admission. Triage Nursing notes reviewed and agree them. Prior medical records reviewed Vital Signs: reviewed and remarkable for no significant abnormalities Differential diagnosis: Cardiac ischemia, aortic dissection, pulmonary embolism, pneumothorax, pneumonia, pericarditis, myocarditis, esophageal rupture, GERD, cholecystitis, pancreatitis, musculoskeletal, as well as other pathologies. ER treatment provided: See below. Diagnostics interpreted by me: ECG: Normal sinus rhythm, first-degree AV block, 75 bpm, normal axis, no ectopy, no overt ST elevation or depression, QTC 413, QRS 70. Cardiac Monitoring: An order for continuous cardiac monitoring was placed and demonstrated Sinus rhythm, first-degree AV block, 75 bpm, no ectopy. Laboratory studies: See below Imaging studies: CXR: No acute cardiopulmonary process per my preliminary review. STATRAD: Preliminary Findings Only See Final Report For Complete Findings CTA CHEST: Comparison is made to CT chest on 12/20/2017. No pulmonary embolus identified. Atherosclerotic changes of the aorta. No aortic aneurysm or dissection. Mild dependent and bibasilar atelectasis. No focal consolidation. Heterogeneous thyroid could be further evaluated with nonemergent dedicated ultrasound if clinically indicated. Small hiatal hernia. Prominence of the wall of the distal esophagus may represent esophagitis. Radiologist: Astrid Stokes M.D. Study ready at 22:47 and initial results transmitted at 22:53 Consultation(s): Case was discussed with Dr. Chowdhury, [facility] hospitalist, who will evaluate the patient for admission. HPI: The patient is a pleasant 84-year-old woman with a past medical history of remote breast cancer who presents emergency department with episode of chest pain that occurred several hours prior to arrival that improved after receiving full dose aspirin by EMS. Patient reports feeling radiation from her chest to her back. She denied any shortness of breath, nausea or vomiting. Prior to this she has been feeling healthy and denies any fevers, chills, cough, congestion, urinary symptoms. ROS: See above HPI for pertinent positives & negatives. A total of 10 systems reviewed and were otherwise negative. PAST MEDICAL HISTORY:See Below PAST SURGICAL HISTORY:See Below FAMILY HISTORY:See Below SOCIAL HISTORY:See Below HOME MEDICATIONS:See Below ALLERGIES:See Below VITALS:See Below PHYSICAL EXAMINATION: GENERAL: Awake, alert, well-appearing, in no distress, BMI 38.9 kg/M HENT: Normocephalic, atraumatic. Oropharynx unremarkable. EYES: Normal conjunctiva. Sclera non-icteric. NECK: Supple. No nuchal rigidity. FROM. No JVD. RESPIRATORY: Clear to auscultation. CARDIAC: Regular rate, normal rhythm. Extremities warm and well perfused. Pulses equal. ABDOMEN: Soft, non-distended. No tenderness to palpation. No rebound or guarding. No masses. RECTAL: Deferred. MUSCULOSKELETAL: Chest examination reveals no tenderness. The back is symmetrical on inspection without obvious abnormality. There is no CVA tenderness to palpation. No joint edema. LOWER EXTREMITIES: Calves are equal size bilaterally and non-tender. Scant bilateral lower extremity edema. No discoloration. NEURO: Normal sensorium. No sensory or motor deficits noted. SKIN: No rash or jaundice noted. Armando Peterson MD Past Med/Surg History Medical History Acquired hallux valgus of right foot (Acute) Callus (Acute) Cancer of breast (Resolved) Cellulitis of right lower extremity (Chronic) Diabetes (Chronic) Diabetes mellitus with diabetic polyneuropathy (Acute) Diabetic foot ulcer (Chronic) Diarrhea (Chronic) Hallux valgus (acquired), left foot (Acute) Hyperglycemia (Chronic) Hypoglycemia (Chronic) Intractable abdominal pain (Chronic) Intractable vomiting (Chronic) Neuropathic ulcer of toe of left foot (Acute) Osteomyelitis of right foot (Chronic) Pain, foot, right, chronic (Chronic) Pedal edema (Chronic) Vomiting (Chronic) Surgical History H/O hysterectomy for benign disease (Resolved) S/P hernia surgery (Resolved) Status post left breast lumpectomy (Resolved) Social History Preferred Language: Sami Communication Ability: Effective Visual Impairment: Limited Hearing Ability: Normal Senior Process Control Tech Required: No Beliefs That Will Affect Care: None marital status: Current Living Situation: Spouse and Family Current Living Situation Comment: lives w/ & grandson. in hospital. grandson not always home current occupational status: retired Other Information That Helps Us Care for You: Yes (wound care sees patient) Feels Safe at Home: Yes Smoking Status: Never smoker Hx Alcohol Use: No Hx Substance Use: No during the past year weight has: remained stable Allergies Allergies Allergy/AdvReac Type Severity Reaction Status Date / Time citalopram Allergy Unknown CAN'T Verified 03/18/20 21:06 REMEMBER Yvnrluy-Cwh-Feh Reductase Allergy Unknown CAN'T Verified 03/18/20 21:06 Inhibitor REMEMBER codeine AdvReac Unknown PASSED OUT Verified 03/18/20 21:06 AFTER DENTAL PROCEDURE. Home Meds Home Medications Medication Instructions Recorded Confirmed acetaminophen [Tylenol] 650 mg PO DIRECTED PRN 03/18/20 03/18/20 Results & Data (ED) Vital Signs Vital Signs - 24 hr 03/18/20 20:46 03/18/20 21:21 03/18/20 22:46 Temperature 36.6 C Temperature Source Oral Pulse Rate 75 Pulse Rate [Apical] 70 Respiratory Rate 18 18 Blood Pressure 143/94 H Blood Pressure [Right Arm] 130/85 Blood Pressure Mean 110 Blood Pressure Mean [Right Arm] 100 Pulse Oximetry 98 98 94 Oxygen Delivery Method Room Air Room Air Room Air Sepsis Recent Fever Within 48 Hours No Sepsis New/Unexplained Change in Mental Status No Sepsis Action Taken by Nursing No Action Required Laboratory Data Attestation: I reviewed the patient's lab results. Result diagrams: 03/18/20 20:10 03/18/20 20:10 Lab Results 03/18/20 03/18/20 03/18/20 Range/Units 20:10 20:10 20:10 WBC 5.47 (4.8-10.8) K/uL RBC 4.57 (4.2-5.4) M/uL Hgb 12.4 (12.0-16.0) g/dL Hct 39.9 (37-47) % MCV 87.3 (80-100) fL MCH 27.1 (25-34) pg MCHC 31.1 L (32-36) g/dL RDW Std Deviation 46.1 (36.4-46.3) fL RDW Coeff of Kevin 14.5 (11.5-14.5) % Plt Count 227 (130-400) K/uL MPV 10.4 (7.4-10.4) fL Immature Gran % (Auto) 0.2 % Neut % (Auto) 51.9 % Lymph % (Auto) 37.8 % Elbert % (Auto) 7.9 % Eos % (Auto) 2.0 % Baso % (Auto) 0.2 % Neut # (Auto) 2.84 (1.4-6.5) K/uL Lymph # (Auto) 2.07 (1.2-3.4) K/uL Elbert # (Auto) 0.43 (0.11-0.59) K/uL Eos # (Auto) 0.11 (0-0.5) K/uL Baso # (Auto) 0.01 (0-0.2) K/uL Immature Gran # (Auto) 0.01 (0.00-0.02) K/uL PT 10.8 (9.0-12.0) Seconds INR 1.0 (0.9-1.1) APTT 27.2 (21.0-31.0) Seconds PTT Ratio 1.0 Sodium 143 (136-145) mmol/L Potassium 4.0 (3.5-5.1) mmol/L Chloride 109 H (98-107) mmol/L Carbon Dioxide 30 (21-32) mmol/L Anion Gap 3.0 (3-11) BUN 20 H (7-18) mg/dl Creatinine 0.94 (0.6-1.2) mg/dl Est Cr Clr Drug Dosing 46.2 ml/min Est GFR ( Amer) 65.5 Est GFR (Non-Af Amer) 56.5 BUN/Creatinine Ratio 20.9 H (10-20) Glucose 144 H (70-99) mg/dl Calcium 8.9 (8.5-10.1) mg/dl Phosphorus 3.3 (2.5-4.9) mg/dl Magnesium 1.6 L (1.8-2.4) mg/dl Total Bilirubin 0.3 (0.2-1) mg/dl Direct Bilirubin < 0.1 (0-0.2) mg/dl AST 12 L (15-37) U/L ALT 13 (12-78) U/L Alkaline Phosphatase 58 (45-117) U/L Troponin I < 0.015 (0-0.045) ng/ml Total Protein 6.8 (6.4-8.2) gm/dl Albumin 2.9 L (3.4-5.0) gm/dl Globulin 3.9 (2.5-4.0) gm/dl Albumin/Globulin Ratio 0.7 L (0.9-2) Lipase 101 (73-393) U/L Administered Medications Discontinued Medications Sodium Chloride (Nss) 500 mls @ 999 mls/hr IV .Q31M ONE Stop: 03/18/20 21:48 Last Infusion: 03/18/20 22:10 Dose: 0 mls/hr Documented by: [id number] Admin: 03/18/20 21:24 Dose: 999 mls/hr Documented by: [id number] Acetaminophen (Ofirmev) 1,000 mg in 100 mls @ 400 mls/hr IV NOW STA Stop: 03/18/20 21:32 Last Infusion: 03/18/20 21:43 Dose: 0 mls/hr Documented by: [id number] Admin: 03/18/20 21:25 Dose: 400 mls/hr Documented by: [id number] Magnesium Sulfate/Dextrose (Magnesium Sulfate / D5w) 1 gm in 100 mls @ 100 mls/hr IV Q1H NIKA Stop: 03/19/20 01:00 Last Infusion: 03/19/20 01:05 Dose: 0 mls/hr Documented by: [id number] Admin: 03/19/20 00:09 Dose: 100 mls/hr Documented by: [id number] Infusion: 03/19/20 00:09 Dose: 0 mls/hr Documented by: [id number] Admin: 03/18/20 23:07 Dose: 100 mls/hr Documented by: [id number] Ioversol (Optiray 320 125ml) 116 ml IV ONCE PRN PRN Reason: Interaction Checking Stop: 03/22/20 22:34 Last Admin: 03/18/20 22:35 Dose: 116 ml Documented by: [id number] Blood Pressure Blood Pressure Findings: Normal blood pressure Discharge Plan Visit Data *Final* Discharge Date/Time: 03/19/20 00:08 Chief Complaint: Chest Pain ED Provider: Armando Peterson Discharge Problem: Substernal chest pain, Hypomagnesemia, Diabetes Patient Disposition: Home - Self-Care Discharge Instructions Interventions: ED Discharge Assessment Last Done: 03/19/20 00:08 Discharge Problem: Diabetes Qualifiers: Diabetes mellitus type: type 2 Diabetes mellitus prison insulin use: unspecified prison insulin use status Diabetes mellitus complication status: with other specified complication Qualified Code(s): E11.69 - Type 2 diabetes mellitus with other specified complication
[2020-03-18] MEDS: MAGNESIUM SULFATE / D5W 1 GM/100 ML BAG IV SCH (23:07)
[2020-03-19] MEDS: MAGNESIUM SULFATE / D5W 1 GM/100 ML BAG IV SCH (00:09)
[2020-03-19] MEDS ORDERED: NITROGLYCERIN SL 0.4 MG/TAB TAB SL PRN (00:53)
[2020-03-19] MEDS ORDERED: ONDANSETRON INJ 2 MG/ML 2 ML VIAL IV PRN (00:53)
[2020-03-19] MEDS ORDERED: MICONAZOLE NITRATE POWDER 43 GM EXT PRN (01:10)
[2020-03-19] MEDS ORDERED: PNEUMOCOCCAL ADMINISTRATION CHARGE ONE (01:16)
[2020-03-19] MEDS ORDERED: PNEUMOCOCCAL POLYSACCHARIDES 25 MCG/0.5 ML VIAL/SYR IM ONE (01:16)
--- NOTE | 2020-03-19 01:34 | History and Physical Report ---
DATE OF ADMISSION: 03/18/2020 CHIEF COMPLAINT: Chest pain. HISTORY OF PRESENT ILLNESS: This is an 84-year-old female with past medical history significant for diabetes, but not taking any medication at home and does not check blood sugars at home, and diabetic foot ulcers, hyperlipidemia, B12 deficiency, osteoporosis, diabetic retinopathy, dementia without behavioral disturbance, statin intolerance, anxiety, depression, not on any medications at home, who presents with chest pain. The patient lives with her . Her recently fell down and had rib fracture, currently at [facility], so the patient is alone at home. Daughter is in the room. The patient complained of some chest pain in the evening, moderate in severity, radiating to back. En route, she was given 4 tablets of aspirin and the pain is almost resolved. She just has some discomfort in the back. Now resting comfortably and hemodynamically stable. She has some edema in the lower extremities and she was treated with 3 days of Lasix by the home nurse few daysago.. She has some bandage to the ulcers in the bilateral foot region. Currently, denies any headache, no earache, no runny nose, no sore throat, no cough, no shortness of breath, no nausea, no abdominal pain. Normal bowel and bladder movements. No rash seen. ALLERGIES: CELEXA AND STATINS. PAST MEDICAL HISTORY: As mentioned above. 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 MEDICATIONS: Patient currently is taking Tylenol as needed. FAMILY HISTORY: Mother had cancer, non-Hodgkin's lymphoma; father had heart disorder, cerebral aneurysm; maternal grandmother had diabetes; paternal grandmother had diabetes. SOCIAL HISTORY: . No smoking, no alcohol, no drug use. REVIEW OF SYSTEMS: As per HPI. Rest of the review of systems negative. PHYSICAL EXAMINATION: GENERAL: The patient is old and frail, not in acute distress. Hard of hearing. VITAL SIGNS: Temperature 36.6, pulse 70, respiratory rate 18, blood pressure 130/85, oxygen 94% on room air. HEENT: No pallor, no icterus. Pupils equal, round, reactive to light. Oral mucosa moist. NECK: No JVD, no neck masses. CARDIOVASCULAR: S1, S2 heard, regular rate and rhythm. No murmur, no gallop. RESPIRATORY SYSTEM: Normal AP diameter. No accessory muscle use. No wheezing, no crackles. ABDOMEN: Soft, bowel sounds present, nontender. No distention. CENTRAL NERVOUS SYSTEM: Cranial nerves II-XII grossly intact, nonfocal. EXTREMITIES: Bilateral lower extremity edema present and diabetic foot ulcers seen in the heel and plantar aspect of the foot. No drainage seen. LABORATORY DATA: WBC 5.4, hemoglobin 12.4, hematocrit 39.9, platelets 227. PT 10.8, INR 1, APTT 27.2. Sodium 143, potassium 4, chloride 109, bicarbonate 30, BUN 20, creatinine 0.9, serum glucose 144, calcium 8.9, phosphorus 3.3, magnesium 1.6, total bilirubin 0.3, direct bilirubin less than 0.1, AST 12, ALT 13, alkaline phosphatase 58. Troponin I less than 0.015. Lipase 101. IMAGING DATA: Chest x-ray, no acute findings seen. CT of the chest, no pulmonary embolus identified. Atherosclerotic changes of aorta. No aortic aneurysm or dissection. Mild dependent and bibasilar atelectasis. No focal consolidation. . Small hiatal hernia. Possible esophagitis. EKG: Normal sinus rhythm with first-degree AV block at the rate of 75, no significant change was found. ASSESSMENT AND PLAN: This is an 84-year-old female who presents with chest pain. 1. Chest pain, almost resolved with aspirin. Currently resting comfortably and hemodynamically stable. Initial EKG and troponin negative. We will rule out acute coronary syndrome with serial enzymes, echo. Keep n.p.o. for now and consult cardiology in a.m. Monitor in the med tele. 2. History of diabetes and diabetic foot ulcers, not taking any medications. We will follow HbA1c levels. Placed on insulin sliding scale. We will consult wound care while she is in the hospital. 3. History of chronic diastolic congestive heart failure. A 2013 echo showed grade 2 diastolic dysfunction. Recently she had 3 days of Lasix for lower extremity edema. We will follow the echocardiogram and await cardiology recommendations. 4. Hypomagnesemia, will replace. We will follow the labs in the a.m. 5. B12 deficiency. We will follow the B12 levels in the a.m. 6. Hyperlipidemia, not on any medications. We will follow the lipid profile. 7. History of dementia, not on any medications. Monitor for any delirium. 8. Oesophagitis. On ct scan. Will place on ppii. 9. Deep venous thrombosis prophylaxis, sequential compression devices for now. 10. Disposition: Observe in med tele. PT and OT prior to discharge. Social service to help with discharge planning. ROSEMARYD
[2020-03-19] MEDS ORDERED: GLUCOSE 40% GEL 15 GM TUBE PO PRN (02:00)
[2020-03-19] MEDS ORDERED: DEXTROSE 50% 50 ML SYRINGE IV PRN (02:00)
[2020-03-19] MEDS ORDERED: GLUCAGON FOR INJ 1 MG VIAL IM PRN (02:00)
[2020-03-19] MEDS ORDERED: CARBOHYDRATES FOR HYPOGLYCEMIA PO PRN (02:00)
[2020-03-19] MEDS ORDERED: GLUCOSE 10 TABS/TUBE PO PRN (02:00)
[2020-03-19 05:43] LABS: Basophils # (auto) 0.02 K/uL (0-0.2); Basophils % (auto) 0.4 %; Eosinophils # (auto) 0.13 K/uL (0-0.5); Eosinophils % (auto) 2.5 %; Hematocrit (blood only) 38.7 % (37-47); Hemoglobin 11.9 g/dL (12.0-16.0); Lymphocytes # (auto) 2.33 K/uL (1.2-3.4); Lymphocytes % (auto) 44.3 %; Mean Corpuscular Hemoglobin 26.7 pg (25-34); Mean Corpuscular Hgb Conc 30.7 g/dL (32-36); Mean Corpuscular Volume 86.8 fL (80-100); Mean Platelet Volume 9.8 fL (7.4-10.4); Monocytes # (auto) 0.47 K/uL (0.11-0.59); Monocytes % (auto) 8.9 %; Neutrophils # (auto) 2.31 K/uL (1.4-6.5); Neutrophils % (auto) 43.9 %; Platelet Count 184 K/uL (130-400); RDW Coefficient of Variation 14.5 % (11.5-14.5); RDW Standard Deviation 45.9 fL (36.4-46.3); Red Blood Count 4.46 M/uL (4.2-5.4); White Blood Count 5.26 K/uL (4.8-10.8)
[2020-03-19 06:03] LABS: Estimated Average Glucose 166 mg/dl; Hemoglobin A1C 7.4 % (4.5-5.6)
[2020-03-19 06:20] LABS: BUN Creatinine Ratio 19.9 (10-20); Blood Urea Nitrogen 14 mg/dl (7-18); Calcium 8.3 mg/dl (8.5-10.1); Carbon Dioxide 29 mmol/L (21-32); Chloride 113 mmol/L (98-107); Creatinine Clr Calc Pharmacy 58.1 ml/min; Est GFR (African American) 88.9; Est GFR (Non-African American) 76.7; Glucose 105 mg/dl (70-99); Potassium 3.9 mmol/L (3.5-5.1); Sodium 145 mmol/L (136-145)
[2020-03-19 06:31] LABS: Chol HDL Ratio 5; Cholesterol 150 mg/dl (0-200); HDL Cholesterol 29 mg/dl; LDL Cholesterol Calculated 91 mg/dl; Triglycerides 148 mg/dl (0-150); Troponin I < 0.015 ng/ml (0-0.045); VLDL Cholesterol 30 mg/dl
[2020-03-19] MEDS: INSULIN ASPART 100 UNITS/ML 3 ML PEN SC SCH ×4 (06:38→21:00)
--- NOTE | 2020-03-19 07:01 | XRay Report ---
XR chest 1V portable CLINICAL HISTORY: Atypical chest pain COMPARISON STUDY: 12/20/2017 FINDINGS: The cardiac and mediastinal contours are normal. There is no evidence of focal pulmonary co nsolidation. There is no evidence of failure. No pleural effusions are visualized.[ IMPRESSION: No active disease in the chest. ACT 112: Negative or not required by law. Electronically signed by: Ion Oro M.D. 03/19/2020 6:59 AM
--- NOTE | 2020-03-19 07:59 | CT Scan Report ---
CT ANGIOGRAM OF THE CHEST CLINICAL HISTORY: Atypical chest pain COMPARISON STUDY: 12/20/2017 TECHNIQUE: Following the IV administration of 116 mL of Optiray-320, CT angiogram of the thorax was p erformed from the thoracic inlet to the lung bases utilizing the pulmonary embolus protocol. Images a re reviewed in the axial, sagittal, and coronal planes. IV contrast was administered without complica tion. MIP imaging was performed. A dose lowering technique was utilized adhering to the principles o f ALARA. CT DOSE: 490.82 mGy.cm FINDINGS: There is a multinodular right lobe the thyroid. There is a small hiatal hernia with distal esophageal wall thickening. No pathologically enlarged axillary mediastinal or hilar lymph nodes were visualized. There was no evidence of thoracic aortic dilatation. There were no pulmonary artery filling defects to indicate acute pulmonary embolism. No pleural effusions are visualized. There is no focal pulmonary consolidation. There is mild subpleural reticulation. IMPRESSION: 1. No evidence of acute pulmonary embolism 2. No evidence of focal pulmonary consolidation 3. Small hiatal hernia with distal esophageal wall thickening 4. Mild subpleural reticulation 5. Heterogeneous multinodular thyroid gland. ACT 112: Negative or not required by law. Electronically signed by: Ion Oro M.D. 03/19/2020 7:58 AM
[2020-03-19] MEDS: ACETAMINOPHEN 325 MG TAB PO PRN ×2 (08:34→22:31)
[2020-03-19] MEDS: ASPIRIN 81 MG ECTAB PO SCH (08:34)
[2020-03-19] MEDS: PANTOprazole 40 MG TAB PO SCH ×2 (09:13→20:20)
--- NOTE | 2020-03-19 12:51 | Hospitalist Progress Note ---
Date of Service March 19, 2020 Assessment & Plan (1) Substernal chest pain: ASSESSMENT AND PLAN: This is an 84-year-old female who presents with chest pain. 1. Chest pain, ACS ruled out EKG no signs of ischemia Troponin x 3 negative Echo: no LV wall motion abnormalities -- Labeling Machine Operator consulted PE ruled out with CT angio negative for PE 2. History of diabetes and diabetic foot ulcers, not taking any medications. -- A1c 7.4 not on DM medications will need Metformin -- Wound care consulted 3. History of chronic diastolic congestive heart failure. Echo noted, grade 1 diastolic dysfunction, EF 65-70% -- euvolemic 4. Hypomagnesemia -- replaced resolved 5. B12 deficiency -- B12 level normal 6. Hyperlipidemia, not on any medications. -- TG 148 Cholesterol 150 LDL 91 HDL 29 7. History of dementia -- not on any medication monitor for delirium 8. Oesophagitis. On ct scan -- Protonix started 9. Deep venous thrombosis prophylaxis, sequential compression devices for now. 10. Disposition: Observe in med tele. PT and OT prior to discharge. Social service to help with discharge planning. Admission and Anticipated Discharge Date Admission Date: March 18, 2020 Subjective ff up for chest pain seen sitting up in bed, comfortable, oriented x 2 somewhat upset, states she is very hungry explained results, plan of care, she became calmer denies recurrence of chest pain while admitted no SOB, dizziness, palpitations no abdominal pain, nausea/vomiting denies pain on her feet or any other pain no other symptoms Review of Systems Review of Systems: All systems reviewed & are unremarkable except as noted in HPI & below Physical Exam Physical Exam: General- oriented x 2, not in distress, speaks in sentences with no effort or accessory muscle use Head- atraumatic Eyes- PERRL, EOMI, anicteric ENT- oropharynx clear Neck- supple, no JVD, no adenopathy, no thyromegaly; carotids +2/2, no bruits appreciated Lungs- clear to auscultation bilaterally, no rales/wheezes Heart- normal rate, regular rhythm; no murmur, no gallop, no rub appreciated Abdomen- normal bowel sounds, nondistended, soft, nontender, no masses or hepatosplenomegaly Extremities- no pretibial edema, no calf tenderness; peripheral pulses intact feet: small wound on the right great toe, plantar aspect small wound on the left plantar aspect minimal surrounding erythema, no tenderness, no discharge Neuro- alert, oriented x 2; CN 2-12 grossly intact; motor 5/5 bilaterally;sensation 100% on all extremities; no other gross focal neurologic deficits poor short term memory Skin- warm & dry Results & Data Results & Data ([facility]) Vital Signs (Past 12 Hours) Vital Signs Temp Pulse Resp BP Pulse Ox 03/19/20 11:15 36.4 C L 62 18 102/64 92 03/19/20 07:17 36.5 C 62 18 118/72 94 Laboratory Results Laboratory Results - last 24 hr 03/18/20 03/18/20 03/18/20 20:10 20:10 20:10 WBC 5.47 RBC 4.57 Hgb 12.4 Hct 39.9 MCV 87.3 MCH 27.1 MCHC 31.1 L RDW Std Deviation 46.1 RDW Coeff of Kevin 14.5 Plt Count 227 MPV 10.4 Immature Gran % (Auto) 0.2 Neut % (Auto) 51.9 Lymph % (Auto) 37.8 [place] % (Auto) 7.9 Eos % (Auto) 2.0 Baso % (Auto) 0.2 Neut # (Auto) 2.84 Lymph # (Auto) 2.07 [place] # (Auto) 0.43 Eos # (Auto) 0.11 Baso # (Auto) 0.01 Immature Gran # (Auto) 0.01 PT 10.8 INR 1.0 APTT 27.2 PTT Ratio 1.0 Sodium 143 Potassium 4.0 Chloride 109 H Carbon Dioxide 30 Anion Gap 3.0 BUN 20 H Creatinine 0.94 Est Cr Clr Drug Dosing 46.2 Est GFR ( Amer) 65.5 Est GFR (Non-Af Amer) 56.5 BUN/Creatinine Ratio 20.9 H Glucose 144 H POC Glucose Estimat Average Glucose Hemoglobin A1c Calcium 8.9 Phosphorus 3.3 Magnesium 1.6 L Total Bilirubin 0.3 Direct Bilirubin < 0.1 AST 12 L ALT 13 Alkaline Phosphatase 58 Troponin I < 0.015 Total Protein 6.8 Albumin 2.9 L Globulin 3.9 Albumin/Globulin Ratio 0.7 L Triglycerides Cholesterol LDL Cholesterol, Calc VLDL Cholesterol, Calc HDL Cholesterol Cholesterol/HDL Ratio Lipase 101 Vitamin B12 TSH 03/19/20 03/19/20 03/19/20 01:17 05:24 05:24 WBC 5.26 RBC 4.46 Hgb 11.9 L Hct 38.7 MCV 86.8 MCH 26.7 MCHC 30.7 L RDW Std Deviation 45.9 RDW Coeff of Kevin 14.5 Plt Count 184 MPV 9.8 Immature Gran % (Auto) 0.0 Neut % (Auto) 43.9 Lymph % (Auto) 44.3 [place] % (Auto) 8.9 Eos % (Auto) 2.5 Baso % (Auto) 0.4 Neut # (Auto) 2.31 Lymph # (Auto) 2.33 [place] # (Auto) 0.47 Eos # (Auto) 0.13 Baso # (Auto) 0.02 Immature Gran # (Auto) 0.00 PT INR APTT PTT Ratio Sodium 145 Potassium 3.9 Chloride 113 H Carbon Dioxide 29 Anion Gap 3.0 BUN 14 Creatinine 0.73 Est Cr Clr Drug Dosing 58.1 Est GFR ( Amer) 88.9 Est GFR (Non-Af Amer) 76.7 BUN/Creatinine Ratio 19.9 Glucose 105 H POC Glucose 110 H Estimat Average Glucose Hemoglobin A1c Calcium 8.3 L Phosphorus Magnesium 2.0 Total Bilirubin Direct Bilirubin AST ALT Alkaline Phosphatase Troponin I < 0.015 Total Protein Albumin Globulin Albumin/Globulin Ratio Triglycerides 148 Cholesterol 150 LDL Cholesterol, Calc 91 VLDL Cholesterol, Calc 30 HDL Cholesterol 29 Cholesterol/HDL Ratio 5 Lipase Vitamin B12 TSH 1.110 03/19/20 03/19/20 03/19/20 05:24 05:24 06:33 WBC RBC Hgb Hct MCV MCH MCHC RDW Std Deviation RDW Coeff of Kevin Plt Count MPV Immature Gran % (Auto) Neut % (Auto) Lymph % (Auto) [place] % (Auto) Eos % (Auto) Baso % (Auto) Neut # (Auto) Lymph # (Auto) [place] # (Auto) Eos # (Auto) Baso # (Auto) Immature Gran # (Auto) PT INR APTT PTT Ratio Sodium Potassium Chloride Carbon Dioxide Anion Gap BUN Creatinine Est Cr Clr Drug Dosing Est GFR ( Amer) Est GFR (Non-Af Amer) BUN/Creatinine Ratio Glucose POC Glucose 116 H Estimat Average Glucose 166 Hemoglobin A1c 7.4 H Calcium Phosphorus Magnesium Total Bilirubin Direct Bilirubin AST ALT Alkaline Phosphatase Troponin I Total Protein Albumin Globulin Albumin/Globulin Ratio Triglycerides Cholesterol LDL Cholesterol, Calc VLDL Cholesterol, Calc HDL Cholesterol Cholesterol/HDL Ratio Lipase Vitamin B12 244 TSH 03/19/20 03/19/20 03/19/20 11:18 12:21 16:39 WBC RBC Hgb Hct MCV MCH MCHC RDW Std Deviation RDW Coeff of Kevin Plt Count MPV Immature Gran % (Auto) Neut % (Auto) Lymph % (Auto) [place] % (Auto) Eos % (Auto) Baso % (Auto) Neut # (Auto) Lymph # (Auto) [place] # (Auto) Eos # (Auto) Baso # (Auto) Immature Gran # (Auto) PT INR APTT PTT Ratio Sodium Potassium Chloride Carbon Dioxide Anion Gap BUN Creatinine Est Cr Clr Drug Dosing Est GFR ( Amer) Est GFR (Non-Af Amer) BUN/Creatinine Ratio Glucose POC Glucose 112 H 123 H Estimat Average Glucose Hemoglobin A1c Calcium Phosphorus Magnesium Total Bilirubin Direct Bilirubin AST ALT Alkaline Phosphatase Troponin I < 0.015 Total Protein Albumin Globulin Albumin/Globulin Ratio Triglycerides Cholesterol LDL Cholesterol, Calc VLDL Cholesterol, Calc HDL Cholesterol Cholesterol/HDL Ratio Lipase Vitamin B12 TSH
[2020-03-19] MEDS ORDERED: PERFLUTREN LIPID MICROSPHERE (DEFINITY) IV ONE (13:55)
[2020-03-19] MEDS ORDERED: Nursing to Pharmacy Communication SCH (15:00)
--- NOTE | 2020-03-19 18:20 | Cardiology Consultation ---
Date of Consultation March 19, 2020 Assessment & Plan (1) Substernal chest pain: Patient without recollection of any events. No signs of overt ischemia by EKG or cardiac enzymes. Echocardiogram with preserved to hyperdynamic LV function. Would continue aspirin No indications for additional cardiac medications. Could consider beta-paula however resting bradycardia and first-degree AV block precludes Lipids not significantly elevated on outpatient and inpatient test History of Present Illness Reason for Consultation: Possible chest pain Requesting Physician: Dr Farfan Attending Physician: Jesse Farfan MD History of Present Illness Patient is an 84-year-old female with complex underlying multiple issues as listed below. Per review of records [facility] Patient's had difficulties with worsening dementia and short-term memory with previously caring for patient no longer available due to recent injury. Patient was brought to the emergency room last evening due to multiple concerns including an episode of chest pain relieved with aspirin and route. Initial ischemic evaluation unrevealing for ischemia including EKG x2 last evening and this morning and nondetectable troponins x4 Patient has no recollection of admission event and currently denies any chest pains or shortness of breath. Notes no dizziness or lightness notes no syncope or near syncope. Historical accuracy is poor. Allergies Allergy/AdvReac Type Severity Reaction Status Date / Time citalopram Allergy Unknown CAN'T Verified 03/18/20 21:06 REMEMBER Njelsge-Hxi-Mon Reductase Allergy Unknown CAN'T Verified 03/18/20 21:06 Inhibitor REMEMBER codeine AdvReac Unknown PASSED OUT Verified 03/18/20 21:06 AFTER DENTAL PROCEDURE. Home Medications Home Medications Medication Instructions Recorded Confirmed Type acetaminophen [Tylenol] 650 mg PO DIRECTED PRN 03/18/20 03/18/20 History Patient History Medical History Acquired hallux valgus of right foot (Acute) Callus (Acute) Cancer of breast (Resolved) Cellulitis of right lower extremity (Chronic) Diabetes (Chronic) Diabetes mellitus with diabetic polyneuropathy (Acute) Diabetic foot ulcer (Chronic) Diarrhea (Chronic) Hallux valgus (acquired), left foot (Acute) Hyperglycemia (Chronic) Hypoglycemia (Chronic) Intractable abdominal pain (Chronic) Intractable vomiting (Chronic) Neuropathic ulcer of toe of left foot (Acute) Osteomyelitis of right foot (Chronic) Pain, foot, right, chronic (Chronic) Pedal edema (Chronic) Vomiting (Chronic) Surgical History H/O hysterectomy for benign disease (Resolved) S/P hernia surgery (Resolved) Status post left breast lumpectomy (Resolved) Social History Preferred Language: Russian Communication Ability: Effective Visual Impairment: Limited Hearing Ability: Normal Sales Support Coordinator Required: No Beliefs That Will Affect Care: None marital status: Current Living Situation: Spouse and Family Current Living Situation Comment: lives w/ & grandson. in hospital. grandson not always home current occupational status: retired Other Information That Helps Us Care for You: Yes (wound care sees patient) Feels Safe at Home: Yes Smoking Status: Never smoker Hx Alcohol Use: No Hx Substance Use: No during the past year weight has: remained stable Review of Systems Review of Systems: Unobtainable due to cognitive status Physical Exam Constitutional: Elderly female in no acute distress extremely poor short-term memory Eyes: PERRL, conjunctivae normal, anicteric sclerae ENMT: external ear and nose normal, oropharynx normal Neck: trachea midline, no thyromegaly Respiratory: normal respiratory effort, lungs clear to auscultation Cardiovascular: Rate/Rhythm: regular rate and regular rhythm Heart Sounds: normal S1, normal S2 and + murmur (Grade 2/6 systolic, no diastolic); no gallop Palpation: normal PMI Vessels: normal carotid upstroke and radial pulses present; no JVD and no carotid bruit Extremities: no edema Gastrointestinal (Abdomen): normal bowel sounds, soft, nontender, no hepatosplenomegaly Musculoskeletal: no cyanosis or clubbing, extremities motor strength 5/5 Skin: no rashes, warm and dry Neurologic: PERRL, EOMI, accommodation nl, no face palsy, no dysarthria Psychiatric: A+Ox3, euthymic affect Results & Data ([facility]) Vital Signs (Past 12 Hours) Vital Signs Temp Pulse Pulse Resp BP BP Pulse Ox 03/19/20 16:00 36.6 C 62 18 121/77 93 03/19/20 11:15 36.4 C L 62 18 102/64 92 03/19/20 07:17 36.5 C 62 18 118/72 94 Laboratory Results Laboratory Results - last 24 hr 03/18/20 03/18/20 03/18/20 20:10 20:10 20:10 WBC 5.47 RBC 4.57 Hgb 12.4 Hct 39.9 MCV 87.3 MCH 27.1 MCHC 31.1 L RDW Std Deviation 46.1 RDW Coeff of Kevin 14.5 Plt Count 227 MPV 10.4 Immature Gran % (Auto) 0.2 Neut % (Auto) 51.9 Lymph % (Auto) 37.8 [place] % (Auto) 7.9 Eos % (Auto) 2.0 Baso % (Auto) 0.2 Neut # (Auto) 2.84 Lymph # (Auto) 2.07 [place] # (Auto) 0.43 Eos # (Auto) 0.11 Baso # (Auto) 0.01 Immature Gran # (Auto) 0.01 PT 10.8 INR 1.0 APTT 27.2 PTT Ratio 1.0 Sodium 143 Potassium 4.0 Chloride 109 H Carbon Dioxide 30 Anion Gap 3.0 BUN 20 H Creatinine 0.94 Est Cr Clr Drug Dosing 46.2 Est GFR ( Amer) 65.5 Est GFR (Non-Af Amer) 56.5 BUN/Creatinine Ratio 20.9 H Glucose 144 H POC Glucose Estimat Average Glucose Hemoglobin A1c Calcium 8.9 Phosphorus 3.3 Magnesium 1.6 L Total Bilirubin 0.3 Direct Bilirubin < 0.1 AST 12 L ALT 13 Alkaline Phosphatase 58 Troponin I < 0.015 Total Protein 6.8 Albumin 2.9 L Globulin 3.9 Albumin/Globulin Ratio 0.7 L Triglycerides Cholesterol LDL Cholesterol, Calc VLDL Cholesterol, Calc HDL Cholesterol Cholesterol/HDL Ratio Lipase 101 Vitamin B12 TSH 03/19/20 03/19/20 03/19/20 01:17 05:24 05:24 WBC 5.26 RBC 4.46 Hgb 11.9 L Hct 38.7 MCV 86.8 MCH 26.7 MCHC 30.7 L RDW Std Deviation 45.9 RDW Coeff of Kevin 14.5 Plt Count 184 MPV 9.8 Immature Gran % (Auto) 0.0 Neut % (Auto) 43.9 Lymph % (Auto) 44.3 [place] % (Auto) 8.9 Eos % (Auto) 2.5 Baso % (Auto) 0.4 Neut # (Auto) 2.31 Lymph # (Auto) 2.33 [place] # (Auto) 0.47 Eos # (Auto) 0.13 Baso # (Auto) 0.02 Immature Gran # (Auto) 0.00 PT INR APTT PTT Ratio Sodium 145 Potassium 3.9 Chloride 113 H Carbon Dioxide 29 Anion Gap 3.0 BUN 14 Creatinine 0.73 Est Cr Clr Drug Dosing 58.1 Est GFR ( Amer) 88.9 Est GFR (Non-Af Amer) 76.7 BUN/Creatinine Ratio 19.9 Glucose 105 H POC Glucose 110 H Estimat Average Glucose Hemoglobin A1c Calcium 8.3 L Phosphorus Magnesium 2.0 Total Bilirubin Direct Bilirubin AST ALT Alkaline Phosphatase Troponin I < 0.015 Total Protein Albumin Globulin Albumin/Globulin Ratio Triglycerides 148 Cholesterol 150 LDL Cholesterol, Calc 91 VLDL Cholesterol, Calc 30 HDL Cholesterol 29 Cholesterol/HDL Ratio 5 Lipase Vitamin B12 TSH 1.110 03/19/20 03/19/20 03/19/20 05:24 05:24 06:33 WBC RBC Hgb Hct MCV MCH MCHC RDW Std Deviation RDW Coeff of Kevin Plt Count MPV Immature Gran % (Auto) Neut % (Auto) Lymph % (Auto) [place] % (Auto) Eos % (Auto) Baso % (Auto) Neut # (Auto) Lymph # (Auto) [place] # (Auto) Eos # (Auto) Baso # (Auto) Immature Gran # (Auto) PT INR APTT PTT Ratio Sodium Potassium Chloride Carbon Dioxide Anion Gap BUN Creatinine Est Cr Clr Drug Dosing Est GFR ( Amer) Est GFR (Non-Af Amer) BUN/Creatinine Ratio Glucose POC Glucose 116 H Estimat Average Glucose 166 Hemoglobin A1c 7.4 H Calcium Phosphorus Magnesium Total Bilirubin Direct Bilirubin AST ALT Alkaline Phosphatase Troponin I Total Protein Albumin Globulin Albumin/Globulin Ratio Triglycerides Cholesterol LDL Cholesterol, Calc VLDL Cholesterol, Calc HDL Cholesterol Cholesterol/HDL Ratio Lipase Vitamin B12 244 TSH 03/19/20 03/19/20 03/19/20 11:18 12:21 16:39 WBC RBC Hgb Hct MCV MCH MCHC RDW Std Deviation RDW Coeff of Kevin Plt Count MPV Immature Gran % (Auto) Neut % (Auto) Lymph % (Auto) [place] % (Auto) Eos % (Auto) Baso % (Auto) Neut # (Auto) Lymph # (Auto) [place] # (Auto) Eos # (Auto) Baso # (Auto) Immature Gran # (Auto) PT INR APTT PTT Ratio Sodium Potassium Chloride Carbon Dioxide Anion Gap BUN Creatinine Est Cr Clr Drug Dosing Est GFR ( Amer) Est GFR (Non-Af Amer) BUN/Creatinine Ratio Glucose POC Glucose 112 H 123 H Estimat Average Glucose Hemoglobin A1c Calcium Phosphorus Magnesium Total Bilirubin Direct Bilirubin AST ALT Alkaline Phosphatase Troponin I < 0.015 Total Protein Albumin Globulin Albumin/Globulin Ratio Triglycerides Cholesterol LDL Cholesterol, Calc VLDL Cholesterol, Calc HDL Cholesterol Cholesterol/HDL Ratio Lipase Vitamin B12 TSH
--- NOTE | 2020-03-19 19:14 | Electrocardiogram Report ---
Test Reason : Blood Pressure : / mmHG Vent. Rate : 075 BPM Atrial Rate : 075 BPM P-R Int : 214 ms QRS Dur : 078 ms QT Int : 370 ms P-R-T Axes : 051 026 053 degrees QTc Int : 413 ms Sinus rhythm with 1st degree A-V block Otherwise normal ECG When compared with ECG of 20-DEC-2017 20:33, No significant change was found Confirmed by Sotero Hardwick ([id number]) on 03/19/2020 7:14:05 PM Referred By: REFERRED SELF Confirmed By:Bc Hardwick
--- NOTE | 2020-03-19 19:18 | Electrocardiogram Report ---
Test Reason : Blood Pressure : / mmHG Vent. Rate : 065 BPM Atrial Rate : 065 BPM P-R Int : 226 ms QRS Dur : 072 ms QT Int : 400 ms P-R-T Axes : 074 063 057 degrees QTc Int : 416 ms Sinus rhythm with 1st degree A-V block Low voltage QRS Borderline ECG When compared with ECG of 18-MAR-2020 20:42, (unconfirmed) No significant change was found Confirmed by Sotero Hardwick ([id number]) on 03/19/2020 7:18:16 PM Referred By: REFERRED SELF Confirmed By:Bc Hardwick
[2020-03-19] MEDS ORDERED: OLANZapine 10 MG/2.1 ML SDV IM PRN (21:13)
[2020-03-20] MEDS: ASPIRIN 81 MG ECTAB PO SCH (08:36)
[2020-03-20] MEDS: PANTOprazole 40 MG TAB PO SCH ×2 (08:36→20:07)
[2020-03-20] MEDS: INSULIN ASPART 100 UNITS/ML 3 ML PEN SC SCH ×4 (08:36→20:18)
[2020-03-20] MEDS: ACETAMINOPHEN 325 MG TAB PO PRN (08:36)
--- NOTE | 2020-03-20 17:44 | Hospitalist Progress Note ---
Date of Service March 20, 2020 Assessment & Plan (1) Substernal chest pain: ASSESSMENT AND PLAN: This is an 84-year-old female who presents with chest pain. 1. Chest pain, ACS ruled out EKG no signs of ischemia Troponin x 3 negative Echo: no LV wall motion abnormalities -- Chalk Tester consulted no further intervention at this time --Continue aspirin PE ruled out with CT angio negative for PE 2. History of diabetes and diabetic foot ulcers, not taking any medications. -- A1c 7.4 not on DM medications will need Metformin -- Wound care consulted --Start doxycycline p.o. twice daily 3. History of chronic diastolic congestive heart failure. Echo noted, grade 1 diastolic dysfunction, EF 65-70% -- euvolemic 4. Hypomagnesemia -- replaced resolved 5. B12 deficiency -- B12 level normal 6. Hyperlipidemia, not on any medications. -- TG 148 Cholesterol 150 LDL 91 HDL 29 7. History of dementia -- not on any medication monitor for delirium 8. Oesophagitis. --On ct scan -- Protonix started 9. Deep venous thrombosis prophylaxis, sequential compression devices for now. 10. Disposition: PT OT evaluation pending Will likely need long-term facility placement Admission and Anticipated Discharge Date Admission Date: March 20, 2020 Subjective ff up for chest pain Seen resting in bed, comfortable, sleeping but easily awakened, not in distress States she feels fine today overall Denies recurrence of chest pain No shortness of breath, no palpitation no dizziness, denies other symptoms Review of Systems Review of Systems: All systems reviewed & are unremarkable except as noted in HPI & below Physical Exam Physical Exam: General- oriented x 1-2, not in distress, speaks in sentences with no effort or accessory muscle use Eyes- anicteric Neck- no JVD Lungs- clear breath sounds bilaterally, no rales/wheezes Heart- normal rate, regular rhythm; no murmurs Abdomen- normal bowel sounds, nondistended, soft, nontender Extremities- no pretibial edema, no calf tenderness Neuro- alert, oriented x 3; no gross focal neurologic deficits Skin- warm & dry Results & Data Results & Data ([facility]) Vital Signs (Past 12 Hours) Vital Signs Temp Pulse Pulse Resp BP BP Pulse Ox 03/20/20 17:36 68 03/20/20 15:48 36.6 C 61 18 120/71 94 03/20/20 11:49 36.6 C 67 18 112/70 91 03/20/20 09:51 67 03/20/20 07:35 36.6 C 74 18 121/68 95 Laboratory Results Laboratory Results - last 24 hr 03/19/20 03/20/20 03/20/20 20:33 07:31 11:39 POC Glucose 124 H 141 H 160 H 03/20/20 16:24 POC Glucose 153 H
--- NOTE | 2020-03-20 19:01 | Electrocardiogram Report ---
Test Reason : Blood Pressure : / mmHG Vent. Rate : 071 BPM Atrial Rate : 071 BPM P-R Int : 222 ms QRS Dur : 074 ms QT Int : 384 ms P-R-T Axes : 059 048 065 degrees QTc Int : 417 ms Sinus rhythm with 1st degree A-V block Otherwise normal ECG When compared with ECG of 19-MAR-2020 06:53, No significant change was found Confirmed by Sotero Hardwick ([id number]) on 03/20/2020 7:00:51 PM Referred By: REFERRED SELF Confirmed By:Bc Hardwick
[2020-03-20] MEDS: DOXYCYCLINE HYCLATE 100 MG CAP PO SCH (20:06)
[2020-03-21] MEDS: ACETAMINOPHEN 325 MG TAB PO PRN (00:11)
[2020-03-21] MEDS: INSULIN ASPART 100 UNITS/ML 3 ML PEN SC SCH ×4 (08:26→20:52)
[2020-03-21] MEDS: ASPIRIN 81 MG ECTAB PO SCH (08:27)
[2020-03-21] MEDS: PANTOprazole 40 MG TAB PO SCH ×2 (08:27→20:40)
[2020-03-21] MEDS: DOXYCYCLINE HYCLATE 100 MG CAP PO SCH ×2 (08:27→20:40)
[2020-03-21] MEDS ORDERED: SODIUM CHLORIDE 0.9% 1000ML 1,000 ML IV SCH (12:00)
--- NOTE | 2020-03-21 17:46 | Hospitalist Progress Note ---
Date of Service March 21, 2020 Assessment & Plan (1) Substernal chest pain: ASSESSMENT AND PLAN: This is an 84-year-old female who presents with chest pain. 1. Chest pain, ACS ruled out EKG no signs of ischemia Troponin x 3 negative Echo: no LV wall motion abnormalities -- Computer Systems Technician consulted no further intervention at this time --Continue aspirin PE ruled out with CT angio negative for PE 2. History of diabetes and diabetic foot ulcers -- not taking any medications. -- A1c 7.4 not on DM medications will need Metformin -- Wound care consulted, recommendations reviewed -- Doxycycline 100 mg p.o. twice daily 3. History of chronic diastolic congestive heart failure. -- Echo noted, grade 1 diastolic dysfunction, EF 65-70% -- euvolemic 4. Hypomagnesemia -- replaced resolved 5. B12 deficiency -- B12 level normal 6. Hyperlipidemia, not on any medications. -- TG 148 Cholesterol 150 LDL 91 HDL 29 7. History of dementia -- not on any medication monitor for delirium 8. Oesophagitis. --On ct scan -- Protonix started 9. Deep venous thrombosis prophylaxis, SCDs 10. Disposition: PT OT evaluation pending Will likely need fpc facility placement Admission and Anticipated Discharge Date Admission Date: March 20, 2020 Subjective Follow-up for chest pain Seen resting in bed, sleeping but easily awakened Oriented x2, patient has poor short-term memory States that she feels fine overall No recurrence of chest pain No shortness of breath, palpitations During physical therapy, the patient reported some dizziness, blood pressure on the low side Denies pain in her legs or feet, denies pains in her body No other symptoms Review of Systems Review of Systems: All systems reviewed & are unremarkable except as noted in HPI & below Physical Exam Physical Exam: General- oriented x 2, not in distress, speaks in sentences with no effort or accessory muscle use Eyes- anicteric Neck- no JVD Lungs- clear BS bilaterally, no crackles or wheezing Heart- normal rate, regular rhythm; no murmurs Abdomen- normal bowel sounds, nondistended, soft, nontender Extremities- no pretibial edema, no calf tenderness Right foot: Positive small wound-healing on the plantar aspect of the group great toe and midfoot area; minimal surrounding erythema, but no warmth or tenderness per discharge Left foot: Positive small wound on the plantar aspect of the midfoot area, minim al surrounding erythema, but no warmth or tenderness or discharge Neuro- alert, oriented x 2; nonew gross focal neurologic deficits Skin- warm & dry Results & Data Results & Data ([facility]) Vital Signs (Past 12 Hours) Vital Signs Temp Pulse Resp BP Pulse Ox 03/21/20 16:03 36.7 C 68 18 118/74 92 Laboratory Results Laboratory Results - last 24 hr 03/20/20 03/21/20 03/21/20 20:17 07:34 11:52 POC Glucose 115 H 93 197 H SARS-CoV-2 RNA (RT-PCR) 03/21/20 03/21/20 15:00 16:35 POC Glucose 87 SARS-CoV-2 RNA (RT-PCR) Pending
[2020-03-22] MEDS: ACETAMINOPHEN 325 MG TAB PO PRN ×2 (05:29→21:24)
[2020-03-22] MEDS: DOXYCYCLINE HYCLATE 100 MG CAP PO SCH ×2 (07:29→20:35)
[2020-03-22] MEDS: ASPIRIN 81 MG ECTAB PO SCH (07:29)
[2020-03-22] MEDS: PANTOprazole 40 MG TAB PO SCH ×2 (07:29→20:35)
[2020-03-22] MEDS: INSULIN ASPART 100 UNITS/ML 3 ML PEN SC SCH ×4 (08:17→21:20)
[2020-03-22] MEDS: POLYETHYLENE (MIRALAX) 17 GM PACK PO PRN (16:49)
--- NOTE | 2020-03-22 20:10 | Hospitalist Progress Note ---
Date of Service March 22, 2020 Assessment & Plan (1) Substernal chest pain: ASSESSMENT AND PLAN: This is an 84-year-old female who presents with chest pain. 1. Chest pain, ACS ruled out EKG no signs of ischemia Troponin x 3 negative Echo: no LV wall motion abnormalities -- Molder Operator consulted no further intervention at this time -- Continue aspirin --Remains stable No other symptoms PE ruled out with CT angio negative for PE 2. History of diabetes and diabetic foot ulcers -- not taking any medications. -- A1c 7.4 not on DM medications will need Metformin -- Wound care consulted, recommendations reviewed -- Doxycycline 100 mg p.o. twice daily --Wounds healing well 3. History of chronic diastolic congestive heart failure. -- Echo noted, grade 1 diastolic dysfunction, EF 65-70% -- euvolemic 4. Hypomagnesemia -- replaced resolved 5. B12 deficiency -- B12 level normal 6. Hyperlipidemia, not on any medications. -- TG 148 Cholesterol 150 LDL 91 HDL 29 7. History of dementia -- not on any medication monitor for delirium 8. Oesophagitis. --On ct scan -- Protonix started 9. Deep venous thrombosis prophylaxis, SCDs 10. Disposition: PT OT evaluation pending Awaiting acceptance to [facility] facility Admission and Anticipated Discharge Date Admission Date: March 20, 2020 Subjective Follow-up for chest pain Seen with family at the bedside visiting Patient is awake and alert, comfortable, not in distress Denies recurrence of chest pain, no shortness of breath, palpitations, dizziness, Denies pain in her feet No other symptoms Review of Systems Review of Systems: All systems reviewed & are unremarkable except as noted in HPI & below Physical Exam Physical Exam: General- oriented x2, not in distress, speaks in sentences with no effort or accessory muscle use Eyes- anicteric Neck- no JVD Lungs- clear breath sounds bilaterally, no rales/wheezes Heart- normal rate, regular rhythm; no murmurs Abdomen- normal bowel sounds, nondistended, soft, nontender Extremities- no pretibial edema, no calf tenderness Wounds of the feet healing, no signs of active infection or discharge Neuro- alert, oriented x 3; no gross focal neurologic deficits Skin- warm & dry Results & Data Results & Data ([facility]) Vital Signs (Past 12 Hours) Vital Signs Temp Pulse Resp BP Pulse Ox 07/18/20 15:27 36.7 C 72 18 120/76 94
[2020-03-23] MEDS: ACETAMINOPHEN 325 MG TAB PO PRN (06:46)
[2020-03-23] MEDS: DOXYCYCLINE HYCLATE 100 MG CAP PO SCH ×2 (09:05→21:20)
[2020-03-23] MEDS: ASPIRIN 81 MG ECTAB PO SCH (09:05)
[2020-03-23] MEDS: PANTOprazole 40 MG TAB PO SCH ×2 (09:05→21:20)
[2020-03-23] MEDS: INSULIN ASPART 100 UNITS/ML 3 ML PEN SC SCH ×4 (09:07→21:23)
--- NOTE | 2020-03-23 16:05 | Hospitalist Progress Note ---
Date of Service March 23, 2020 Assessment & Plan (1) Substernal chest pain: ASSESSMENT AND PLAN: This is an 84-year-old female who presents with chest pain. 1. Chest pain, ACS ruled out EKG no signs of ischemia Troponin x 3 negative Echo: no LV wall motion abnormalities -- Pull Over Machine Operator consulted no further intervention at this time -- Continue aspirin PE ruled out with CT angio negative for PE -- stable overall 2. History of diabetes and diabetic foot ulcers -- not taking any medications. -- A1c 7.4 not on DM medications will need Metformin and diet modification -- Wound care consulted, recommendations reviewed -- continue Doxycycline 100 mg p.o. twice daily --Wounds healing well 3. History of chronic diastolic congestive heart failure. -- Echo noted, grade 1 diastolic dysfunction, EF 65-70% -- euvolemic 4. Hypomagnesemia -- replaced resolved 5. B12 deficiency -- B12 level normal 6. Hyperlipidemia, not on any medications. -- TG 148 Cholesterol 150 LDL 91 HDL 29 7. History of dementia -- not on any medication monitor for delirium 8. Oesophagitis. --On ct scan -- Protonix started 9. Deep venous thrombosis prophylaxis, SCDs 10. Disposition: PT OT evaluation pending [facility]waiting acceptance to [facility] facility Admission and Anticipated Discharge Date Admission Date: March 20, 2020 Subjective ff up for chest pain seen resting in chair, comfortable answers questions appropriately states she feels fine no chest pain denies SOB, palpitations, dizziness no other symptoms Review of Systems Review of Systems: All systems reviewed & are unremarkable except as noted in HPI & below Physical Exam Physical Exam: General- oriented x 2, not in distress, speaks in sentences with no effort or accessory muscle use Eyes- anicteric Neck- no JVD Lungs- clear BS BL Heart- normal rate, regular rhythm; no murmurs Abdomen- normal bowel sounds, nondistended, soft, nontender Extremities- no pretibial edema, no calf tenderness small wounds on feet healing well Neuro- alert, oriented x2; no gross focal neurologic deficits Skin- warm & dry Results & Data Results & Data ([facility]) Vital Signs (Past 12 Hours) Vital Signs Temp Pulse Resp BP Pulse Ox 03/23/20 15:31 36.5 C 74 18 104/65 96 03/23/20 07:45 36.6 C 70 16 116/72 96
[2020-03-23] MEDS: POLYETHYLENE (MIRALAX) 17 GM PACK PO PRN (17:10)
[2020-03-23] MEDS ORDERED: LACTULOSE SYRUP 30 GM/45 ML UDP PO STA (20:08)
[2020-03-23] MEDS: DOCUSATE SODIUM/SENNA 50/8.6MG TAB PO SCH (21:20)
[2020-03-24] MEDS: DOXYCYCLINE HYCLATE 100 MG CAP PO SCH ×2 (08:59→20:40)
[2020-03-24] MEDS: PANTOprazole 40 MG TAB PO SCH ×2 (08:59→20:40)
[2020-03-24] MEDS: ASPIRIN 81 MG ECTAB PO SCH (08:59)
[2020-03-24] MEDS: INSULIN ASPART 100 UNITS/ML 3 ML PEN SC SCH ×4 (09:03→20:40)
--- NOTE | 2020-03-24 19:44 | Hospitalist Progress Note ---
Date of Service March 24, 2020 Assessment & Plan (1) Substernal chest pain: ASSESSMENT AND PLAN: This is an 84-year-old female who presents with chest pain. 1. Chest pain, ACS ruled out EKG no signs of ischemia Troponin x 3 negative Echo: no LV wall motion abnormalities -- Fabric Inspector consulted no further intervention at this time -- Continue aspirin PE ruled out with CT angio negative for PE -- stable overall no recurrence of chest pain 2. History of diabetes and diabetic foot ulcers -- not taking any medications. -- A1c 7.4 not on DM medications will need Metformin and diet modification -- Wound care consulted, recommendations reviewed -- continue Doxycycline 100 mg p.o. twice daily --Wounds continues to heal well 3. History of chronic diastolic congestive heart failure. -- Echo noted, grade 1 diastolic dysfunction, EF 65-70% -- euvolemic 4. Hypomagnesemia -- replaced resolved 5. B12 deficiency -- B12 level normal 6. Hyperlipidemia, not on any medications. -- TG 148 Cholesterol 150 LDL 91 HDL 29 7. History of dementia -- not on any medication monitor for delirium 8. Oesophagitis. --On ct scan -- Protonix started 9. Deep venous thrombosis prophylaxis, SCDs 10. Disposition: PT OT evaluation pending Awaiting acceptance to senior living facility vs return to home with 24 hour care Admission and Anticipated Discharge Date Admission Date: March 20, 2020 Subjective ff up for chest pain seen resting in bed, comfortable answers most questions appropriately states she feels fine no chest pain, SOB, palpitations, dizziness no other symptoms Review of Systems Review of Systems: All systems reviewed & are unremarkable except as noted in HPI & below Physical Exam Physical Exam: General- oriented x 2, not in distress, speaks in sentences with no effort or accessory muscle use Eyes- anicteric Neck- no JVD Lungs- clear BS BL Heart- normal rate, regular rhythm; no murmurs Abdomen- normal bowel sounds, nondistended, soft, nontender Extremities- no pretibial edema, no calf tenderness wounds on the feet healing well, no discharge, bleeding, erythema improving Neuro- alert, oriented x 2; no gross focal neurologic deficits Skin- warm & dry Results & Data Results & Data ([facility]) Vital Signs (Past 12 Hours) Vital Signs Temp Pulse Resp BP Pulse Ox 03/24/20 15:38 36.5 C 78 18 109/70 97 03/24/20 15:25 36.6 C 79 16 105/64 95
[2020-03-24] MEDS: DOCUSATE SODIUM/SENNA 50/8.6MG TAB PO SCH (20:40)
[2020-03-25] MEDS: ACETAMINOPHEN 325 MG TAB PO PRN (05:07)
[2020-03-25] MEDS: PANTOprazole 40 MG TAB PO SCH ×2 (09:13→21:38)
[2020-03-25] MEDS: INSULIN ASPART 100 UNITS/ML 3 ML PEN SC SCH ×4 (09:13→20:53)
[2020-03-25] MEDS: ASPIRIN 81 MG ECTAB PO SCH (09:13)
[2020-03-25] MEDS: DOXYCYCLINE HYCLATE 100 MG CAP PO SCH ×2 (09:13→21:38)
--- NOTE | 2020-03-25 10:26 | Hospitalist Progress Note ---
Date of Service March 25, 2020 Assessment & Plan (1) Substernal chest pain: ASSESSMENT AND PLAN: This is an 84-year-old female who presents with chest pain. 1. Chest pain, ACS ruled out EKG no signs of ischemia Troponin x 3 negative Echo: no LV wall motion abnormalities -- Lay Out Former consulted no further intervention at this time -- Continue aspirin PE ruled out with CT angio negative for PE -- stable overall no recurrence of chest pain 2. History of diabetes and diabetic foot ulcers -- not taking any medications. -- A1c 7.4 not on DM medications will need Metformin and diet modification -- Wound care consulted, recommendations reviewed -- continue Doxycycline 100 mg p.o. twice daily for 7 day course in total --Wounds continues to heal well 3. History of chronic diastolic congestive heart failure. -- Echo noted, grade 1 diastolic dysfunction, EF 65-70% -- euvolemic 4. Hypomagnesemia -- replaced resolved 5. B12 deficiency -- B12 level normal 6. Hyperlipidemia, not on any medications. -- TG 148 Cholesterol 150 LDL 91 HDL 29 7. History of dementia -- not on any medication monitor for delirium 8. Oesophagitis. --On ct scan -- Protonix started 9. Deep venous thrombosis prophylaxis, SCDs 10. Disposition: PT OT evaluation pending Awaiting acceptance to long term facility vs return to home with 24 hour care. Continuing to collaborate with case management for discharge- awaiting update. Patient seen in collaboration with Dr. Farfan. Please see addendum. Admission and Anticipated Discharge Date Admission Date: March 20, 2020 Supervising Physician Co-Signing Physician Notes Attending Addendum: care coordinated with JONAH Brooks please refer to her notes for full details, I agree with her notes patient seen and examined, records reviewed by myself as well on exam, patient seen resting in bed comfortable no recurrence of chest pain no other symptoms VS noted and reviewed oriented x 2 , not in distress, speaks in sentences with no effort nor accessory muscle use normal rate, regular rhythm, no murmurs clear breath sounds bilaterally non distended, soft, nontender no bipedal edema, erythema, warmth wounds on BL feet healing well no neuro deficits ASSESSMENT AND PLAN Chest pain ACS ruled out stable overall awaiting d/c home vs SNF BL Feet Ulcers last day of Doxycycline tomorrow other diagnoses and plan of care as per JONAH Brooks's notes Jesse Farfan MD Subjective Patient seen and examined in 387-2. Feeling well today, without any new complaints. Tolerating diet without any issue. Denies any fever, chills, and has, headache, chest pain, shortness of breath, nausea, vomiting, abdominal pain, dysuria, diarrhea or constipation. Patient is unsure what plans are for discharge. Encourage communication with her daughter, Maryana. Review of Systems Review of Systems: At least ten systems reviewed and negative except as noted in the HPI. Physical Exam Physical Exam: General- oriented x 2, not in distress, speaks in sentences with no effort or accessory muscle use Eyes- anicteric Neck- no JVD Lungs- clear BS BL Heart- normal rate, regular rhythm; no murmurs Abdomen- normal bowel sounds, nondistended, soft, nontender Extremities- no pretibial edema, no calf tenderness, R plantar foot wound with bandage, healing well, no discharge, bleeding, erythema improving Neuro- alert, oriented x 2; no gross focal neurologic deficits Skin- warm & dry Results & Data Results & Data ([facility]) Vital Signs (Past 12 Hours) Vital Signs Temp Pulse Resp BP Pulse Ox 03/25/20 07:02 36.6 C 69 16 100/54 L 91 03/24/20 22:42 36.3 C L 78 20 102/53 L 94
[2020-03-25 11:12] LABS: Appearance Urine Clear (Clear); Bilirubin Urine Negative (Negative); Blood Urine Negative (Negative); Color Urine Yellow; Glucose Urine UA Negative (Negative); Ketones Urine Negative (Negative); Leukocyte Esterase Urine Negative (Negative); Nitrite Urine Negative (Negative); Protein Urine Negative (Negative); Specific Gravity Urine 1.017 (1.000-1.030); Urobilinogen Urine Negative (Negative)
[2020-03-25] MEDS: DOCUSATE SODIUM/SENNA 50/8.6MG TAB PO SCH (21:37)
[2020-03-26] MEDS: ACETAMINOPHEN 325 MG TAB PO PRN ×3 (02:29→23:13)
[2020-03-26] MEDS: ASPIRIN 81 MG ECTAB PO SCH (08:46)
[2020-03-26] MEDS: PANTOprazole 40 MG TAB PO SCH ×2 (08:46→20:23)
[2020-03-26] MEDS: DOXYCYCLINE HYCLATE 100 MG CAP PO SCH ×2 (08:46→20:23)
[2020-03-26] MEDS: INSULIN ASPART 100 UNITS/ML 3 ML PEN SC SCH ×4 (09:18→22:19)
--- NOTE | 2020-03-26 17:44 | Hospitalist Progress Note ---
Date of Service March 26, 2020 Assessment & Plan (1) Substernal chest pain: ASSESSMENT AND PLAN: This is an 84-year-old female who presents with chest pain. 1. Chest pain, ACS ruled out No further episode of chest pain or chest discomfort EKG no signs of ischemia Troponin x 3 negative Echo: no LV wall motion abnormalities -- Oracle Ebs Architect consulted no further intervention at this time -- Continue aspirin CT chest angiogram negative for PE -- 2. History of diabetes and diabetic foot ulcers -- not taking any medications. -- A1c 7.4 not on DM medications will need Metformin and diet modification -- Wound care consulted, recommendations reviewed -- continue Doxycycline 100 mg p.o. twice daily for 7 day course in total --Wounds continues to heal well 3. History of chronic diastolic congestive heart failure. -- Echo noted, grade 1 diastolic dysfunction, EF 65-70% -- euvolemic 4. Hypomagnesemia -- replaced resolved 5. B12 deficiency -- B12 level normal 6. Hyperlipidemia, not on any medications. -- TG 148 Cholesterol 150 LDL 91 HDL 29 9. Deep venous thrombosis prophylaxis, SCDs 10. Disposition: PT OT evaluation appreciated Awaiting acceptance to intermediate facility Referral made to [facility], Possible transfer to skilled rehab tomorrow Admission and Anticipated Discharge Date Admission Date: March 20, 2020 Subjective Patient seen and examined in 387-2. Patient is very hard of hearing, Denies of any chest pain, no shortness of breath, no fever or chills Feels like her baseline Awaiting insurance approval/bed availability at rehab Possible transfer to [facility] tomorrow Review of Systems Review of Systems: All systems reviewed & are unremarkable except as noted in HPI & below Physical Exam Constitutional: WD/WN, vitals as above no acute distress Eyes: + anicteric sclerae ENMT: external ear and nose normal, oropharynx normal Neck: trachea midline, no thyromegaly Respiratory: normal respiratory effort, lungs clear to auscultation Cardiovascular: RRR, no murmur, no edema Gastrointestinal (Abdomen): Percussion/Palpation: abdomen soft; abdomen nontender Musculoskeletal: no cyanosis or clubbing, extremities motor strength 5/5 Skin: no rashes, warm and dry Neurologic: PERRL, EOMI, accommodation nl, no face palsy, no dysarthria Psychiatric: A+Ox3, euthymic affect Results & Data Results & Data ([facility]) Vital Signs (Past 12 Hours) Vital Signs Temp Pulse Resp BP Pulse Ox 03/26/20 15:30 36.5 C 74 18 107/67 95 03/26/20 07:28 36.3 C L 69 16 101/63 94
[2020-03-26] MEDS: DOCUSATE SODIUM/SENNA 50/8.6MG TAB PO SCH (20:23)
[2020-03-26] MEDS ORDERED: TRAMADOL HCL 50 MG TABLET PO STA (23:47)
[2020-03-27] MEDS: PANTOprazole 40 MG TAB PO SCH (09:10)
[2020-03-27] MEDS: ASPIRIN 81 MG ECTAB PO SCH (09:10)
[2020-03-27] MEDS: DOXYCYCLINE HYCLATE 100 MG CAP PO SCH (09:10)
[2020-03-27] MEDS: INSULIN ASPART 100 UNITS/ML 3 ML PEN SC SCH ×2 (09:12→11:36)
--- NOTE | 2020-03-27 12:04 | Discharge Summary ---
Date of Service March 27, 2020 Admission HPI Per Admitting Provider DICTATED BY: Adrián Chowdhury MD DATE OF ADMISSION: 03/18/2020 CHIEF COMPLAINT: Chest pain. HISTORY OF PRESENT ILLNESS: This is an 84-year-old female with past medical history significant for diabetes, but not taking any medication at home and does not check blood sugars at home, and diabetic foot ulcers, hyperlipidemia, B12 deficiency, osteoporosis, diabetic retinopathy, dementia without behavioral disturbance, statin intolerance, anxiety, depression, not on any medications at home, who presents with chest pain. The patient lives with her . Her recently fell down and had rib fracture, currently at [place], so the patient is alone at home. Daughter is in the room. The patient complained of some chest pain in the evening, moderate in severity, radiating to back. En route, she was given 4 tablets of aspirin and the pain is almost resolved. She just has some discomfort in the back. Now resting comfortably and hemodynamically stable. She has some edema in the lower extremities and she was treated with 3 days of Lasix by the home nurse few daysago.. She has some bandage to the ulcers in the bilateral foot region. Currently, denies any headache, no earache, no runny nose, no sore throat, no cough, no shortness of breath, no nausea, no abdominal pain. Normal bowel and bladder movements. No rash seen. Principal Diagnosis CHEST PAIN , NO EVIDENCE OF ACUTE CORONARY EVENT -RESOLVED DIABETIC FOOT INFECTION -COMPLETED ANTIBIOTIC THERAPY TYPE 2 DIABETES Discharge Exam Constitutional WD/WN, vitals as above no acute distress Eyes + anicteric sclerae ENMT external ear and nose normal, oropharynx normal Neck trachea midline, no thyromegaly Respiratory normal respiratory effort, lungs clear to auscultation Cardiovascular RRR, no murmur, no edema Gastrointestinal (Abdomen) Percussion/Palpation: abdomen soft; abdomen nontender Musculoskeletal no cyanosis or clubbing, extremities motor strength 5/5 Skin no rashes, warm and dry Neurologic PERRL, EOMI, accommodation nl, no face palsy, no dysarthria Psychiatric A+Ox3, euthymic affect Discharge Data Allergies Allergy/AdvReac Type Severity Reaction Status Date / Time citalopram Allergy Unknown CAN'T Verified 03/18/20 21:06 REMEMBER Vskreqp-Dgy-Lpv Reductase Allergy Unknown CAN'T Verified 03/18/20 21:06 Inhibitor REMEMBER codeine AdvReac Unknown PASSED OUT Verified 03/18/20 21:06 AFTER DENTAL PROCEDURE. Consultations 03/18/20 22:57 ED Decision to Admit Stat 03/19/20 00:53 Consult Case Management - Discharge Planning Routine 03/19/20 08:00 Consult Cardiology Routine Ordered Studies 03/18/20 21:12 CT angio chest PE protocol Urgent Hospital Course (1) Substernal chest pain: ASSESSMENT AND PLAN: This is an 84-year-old female who presents with chest pain. 1. Chest pain, ACS ruled out No further episode of chest pain or chest discomfort EKG no signs of ischemia Troponin x 3 negative Echo: no LV wall motion abnormalities -- Vegetable Harvest Worker consulted; appreciate input - no further intervention indicated at this time -- Continue aspirin CT chest angiogram negative for PE -- 2. History of diabetes and diabetic foot ulcers -- not taking any medications. -- A1c 7.4 not on DM medications will need Metformin and diet modification-added on discharge med -- Wound care consulted, recommendations reviewed -- continue Doxycycline 100 mg p.o. twice daily for 7 day course in total - completed antibiotic course during hospital stay --Wounds continues to heal well 3. History of chronic diastolic congestive heart failure. -- Echo noted, grade 1 diastolic dysfunction, EF 65-70% -- euvolemic 4. Hypomagnesemia -- replaced resolved 5. B12 deficiency -- B12 level normal 6. Hyperlipidemia, not on any medications. -- TG 148 Cholesterol 150 LDL 91 HDL 29 9. Deep venous thrombosis prophylaxis, SCDs 10. Disposition: PT OT evaluation appreciated Awaiting acceptance to long-term facility Referral made to [facility] to be trasferred to skilled rehab today Total Time Total Time Spent Total Time Spent (In Minutes): 35 mins Total Time Includes: Examination of the Patient, Discharge Planning and Medication Reconciliation Discharge Plan Discharge Items Patient Disposition: Transfer Long-Term Fac Reason For Visit: CHEST PAIN Discharge Diagnosis: CHEST PAIN , NO EVIDENCE OF ACUTE CORONARY EVENT -RESOLVED DIABETIC FOOT INFECTION -COMPLETED ANTIBIOTIC THERAPY TYPE 2 DIABETES Activity: As commented below Activity Comment: CONTINUE PT AND OT AT THE REHAB Non-emergency contact: Primary Care Provider Call non-emergency contact if: you have any medication questions Follow-up/Referrals: Kilo Adams MD [Primary Care Provider] - None ( ) Diet: Carb Consistent or DM2 and Heart Healthy Addtl Attending Provider Instructions: FOLLOW UP WITH FAMILY PHYSICIAN AFTER DISCHARGE FROM REHAB Pending Studies at Discharge: No Stand-Alone Forms: My [facility] [employer] Skilled Items Patient informed of condition?: Yes DNR: No Discharge Level of Care: Skilled Communicable Disease: No Discharge Prognosis: Stable Lines: None Urinary Catheter: No Medications and DC Order Prescriptions: New polyethylene glycol 3350 [Miralax] 17 gram Powder In Packet 17 g PO DAILY PRN (Reason: constipation) 30 Days Qty: 0 RF: 0 sennosides-docusate sodium [Senokot-S] 8.6-50 mg Tablet 1 tab PO HS 30 Days Qty: 0 RF: 0 Desenex 2 % Powder 1 applic EXT DAILY 30 Days Qty: 0 RF: 0 aspirin 81 mg Tablet,Delayed Release (Dr/Ec) 81 mg PO QAM 30 Days Qty: 0 RF: 0 pantoprazole 40 mg Tablet,Delayed Release (Dr/Ec) 40 mg PO BID 30 Days Qty: 0 RF: 0 acetaminophen 325 mg Tablet 650 mg PO Q8 PRN (Reason: pain) Qty: 0 RF: 0 metformin 500 mg tablet 500 mg PO BID Qty: 60 RF: 0 Discontinued acetaminophen [Tylenol] 325 mg Tablet 650 mg PO DIRECTED PRN (Reason: Pain) RF: 0 Discharge Orders: Discharge Order (Routine); Ordered 03/27/20 Ordered By: Lyudmila Liu/Other Patient Handouts: Diabetes and Heart Disease, Managing Type 2 Diabetes, How to Check Your Blood Sugar, Diabetes Treat Severe Foot Infecs, Diabetes: Keeping Feet Healthy, Diabetes: Inspecting Your Feet, What Are Pressure Injuries of the Foot Admission Data Admit Date/Time: 03/20/20 15:38 Attending Provider: Lyudmila Anderson Admit Provider: Adrián Chowdhury Primary Care Provider: Kilo Adams Other Providers: Adrián Chowdhury ; Tejas Rosen ; Pancho Hernandez ; Grabiel Duong ; Aric Marte ; Christophe Prescott ; Randy Mitchell ; Pau Lopez ; Chayito Salas ; Duke Burch Other Interventions: Discharge Summary Assessment (RN) Last Done: 03/27/20 11:42 DC Date/Time DO NOT enter until pt leaves facility: 03/27/20 13:12
== END 2020-03-27 13:12 | DRG 313 ==
LOC: 2N 20:39 → ED 20:39 → 2N 03-19 00:08 → SUATTDRO 03-20 15:38 → 3N 03-21 16:41